=== PATIENT | female | born 1945 | race Caucasian/White ===

== ENCOUNTER 2018-10-16 02:53 | Inpatient (IN) | payer MEDICARE, SELFPAY ==
[2018-10-16] VITALS (25 sets, daily range): BP systolic 104–147; BP diastolic 53–83; PULSE 70–86; RESP 16–18; TEMP 35.6–37.2; O2SAT 96–100; BMI 29.8; BMI 28.6
--- NOTE | 2018-10-16 03:06 | RAD_ITS ---
STUDY: X-RAY CHEST REASON FOR EXAM: Female, 73 years old. Chest pain. TECHNIQUE: Single AP portable view of the chest. COMPARISON: Prior comparison studies are not available for review at this time. FINDINGS: Cardiac monitoring leads are present. The lungs are clear and expanded. There is no demonstrated pleural abnormality. There is borderline cardiomegaly. Normal mediastinum and davida. Normal visualized pulmonary arteries. There is atherosclerotic tortuosity of the aortic arch and descending thoracic aorta. There is demineralization of the osseous structures. Normal visualized ribs, clavicles, and shoulders. There is no demonstrated abnormality of the visualized soft tissue structures of the upper abdomen. RAD/Chest 1 View (Portable) IMPRESSION: Borderline cardiomegaly without obvious acute cardiopulmonary disease. Electronically Signed: Nathalia Cantrell MD at 4:00 EDT , Service support ,
--- NOTE | 2018-10-16 03:06 | EKG12_ITS ---
Test Reason : SOB Blood Pressure : / mmHG Vent. Rate : 075 BPM Atrial Rate : 075 BPM P-R Int : 128 ms QRS Dur : 076 ms QT Int : 422 ms P-R-T Axes : 002 030 028 degrees QTc Int : 471 ms Normal sinus rhythm Normal ECG Confirmed by ELENA DUEÑAS, MARIKA ([id number]), publication editor JERSON GARZA ([id number]) on 10/19/2018 9:08:28 AM Referred By: Edvin Bowser Confirmed By:MARIKA PARKER MD
[2018-10-16 03:34] LABS: Absolute Lymphocyte Count 1.67 X10^3/ul (0.83-4.51); Absolute Neutrophil Count 3.1 X10^3/uL (2.0-7.7); Basophil# 0.02 X10^3/uL; Basophil% 0.4 % (0-1); Eosinophil# 0.12 X10^3/uL; Eosinophils% 2.3 % (0-5); Hematocrit 15.9 % (37-47); Lymphocyte # 1.67 X10^3/ul (4.0); Lymphocyte % 32.1 % (19-41); Mean Corp Hgb Conc 30.8 g/gl (32-36); Mean Corpuscular Hgb 26.1 pg (27.0-32.0); Mean Corpuscular Volume 84.6 fL (81-99); Monocyte# 0.33 X10^3/uL; Monocyte% 6.3 % (0-10); Neutrophil # 3.05 X10^3/uL (2.7-7.7); Neutrophil % 58.7 % (47-70); Platelet Count 260 K/mm3 (150-450); RBC Distribution Width CV 14.9 % (11.6-14.6); RBC Distribution Width SD 43.9 fl (35.1-43.9); Red Blood Count 1.88 M/mm3 (4.2-5.4); White Blood Count 5.2 K/mm3 (4.4-11.0)
[2018-10-16 03:39] LABS: International Normalized Ratio 1.1; Prothrombin Time (Protime)PT. 14.4 SECONDS (11.7-14.9)
[2018-10-16 03:41] LABS: Differential Indicated SCAN CRITERIA MET; Hemoglobin 4.9 g/dl (12.0-15.0); POSITIVE COUNT YES; POSITIVE DIFFERENTIAL NO; POSITIVE MORPHOLOGY NO
[2018-10-16 03:42] LABS: D-Dimer Quantitative (DVT/PE) < 0.27 FEU/ug/m (0.27-0.49)
[2018-10-16 03:51] LABS: Anion Gap 8 (5-15); BUN 14 mg/dL (7-18); BUN/Creat Ratio 18.5 RATIO (10-20); Calcium,Total 7.8 mg/dL (8.5-10.1); Chloride 108 mmol/L (98-107); Creatinine, Serum 0.76 mg/dL (0.55-1.02); EST Glomerular Filtration Rate 80 mL/min (>60); Est Glom Filt Rate - Afr Amer 97 mL/min (>60); Estimated Creatinine Clearance 41.45 ml/min; Glucose 99 mg/dL (74-106); Potassium 3.7 mmol/L (3.5-5.1); Sodium Level 140 mmol/L (136-145)
[2018-10-16 03:53] LABS: Differential Comment SCANNED; Hypochromasia 2+; Microcytosis 1+; Platelet Estimate ADEQUATE (ADEQ); Schistocytes RARE
[2018-10-16 03:54] LABS: Rouleaux 1+
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
[2018-10-16 05:38] LABS: Bacteria 0 SEEN /hpf (None Seen); Mucous, Urine 0 SEEN /hpf (<or=2+); Red Blood Cells-Urine 0 SEEN /hpf (0-5); Squamous Epithelial Cells - UA 0 SEEN /hpf (5-10); White Blood Cells 0 SEEN /hpf (0-5)
[2018-10-16 05:45] LABS: Thyroid Stim Hormone (TSH) 4.15 uIU/mL (0.358-3.74)
[2018-10-16] MEDS: 0.9% NaCl Peripheral Flush Adult/Peds IV ×2 (05:50→20:08)
[2018-10-16] MEDS: oxyCODONE 5 MG Tablet 10 MG PO ×3 (06:19→19:58)
[2018-10-16] MEDS: Acetaminophen 325 MG Tablet 650 MG PO (06:19)
[2018-10-16 06:33] LABS: Color, Urine Yellow (Yellow); Glucose, Dipstick Normal (Normal); Ketone-Dipstick Negative (Negative); Leukocyte Esterase-Dipstick 25 /ul (Negative); Nitrite-Dipstick Negative (Negative); Occult Blood-Urine Negative /ul (Negative); Protein-Dipstick Negative (Negative); Urine Bilirubin Dipstick Negative (Negative); Urine Clarity Clear (Clear); Urine Urobilinogen Normal (Normal)
[2018-10-16 07:45] LABS: AST(SGOT) 11 U/L (15-37); Alanine Aminotransfer ALT/SGPT 10 U/L (13-56); Albumin, Serum 3.1 g/dL (3.2-5.0); Alkaline Phosphatase 41 U/L (45-117); Bilirubin, Direct 0.07 mg/dL (0.00-0.30); Ferritin 5 ng/mL (8-252); Iron 12 ug/dL (50-170); Iron Binding Capacity,Total 342 ug/dL (250-450); PERCENT IRON SATURATION 3.5 % (15.0-55.0); Protein, Total 6.1 g/dL (6.4-8.2)
[2018-10-16 08:01] LABS: Free T3 3.6 pg/mL (2.18-3.98); T4 Free Direct 1.22 ng/dL (0.76-1.46)
--- NOTE | 2018-10-16 08:39 | CT_ITS ---
STUDY: CT ABDOMEN AND PELVIS WITH CONTRAST REASON FOR EXAM: Female, 73 years old. Severe anemia. Abdominal pain. RADIATION DOSAGE (If Supplied By Facility): CTDIvol = ( 17.69 ) mGy, DLP = ( 777.27 ) mGycm TECHNIQUE: Transaxial images were obtained from the dome of the diaphragm to the symphysis pubis with oral contrast. 100mL IV/Oral Isovue 300 was administered. Sagittal and coronal images were reconstructed. Individualized dose optimization techniques were used for this CT. COMPARISON: None. FINDINGS: The visualized lung bases are unremarkable. The visualized portions of the heart are within normal limits. Normal liver. There is non-visualization of the gallbladder, which may be secondary to either contraction or a prior cholecystectomy. Normal spleen. There is diffuse atrophy of the pancreas. Normal bilateral adrenal glands. Normal right kidney. Normal left kidney. Normal visualized stomach. Normal small intestine. There are multiple colonic diverticula consistent with diverticulosis. Postsurgical changes of the sigmoid colon. Significant fecal retention throughout the remainder of the colon. Nonvisualized appendix. Normal abdominal aorta. Normal inferior vena cava. Normal retroperitoneum. Normal urinary bladder. Status post hysterectomy Normal abdominal wall. Severe compression deformity of L1, chronic in nature CT/Abdomen/Pelvis WITH Contrast IMPRESSION: No acute findings. Significant fecal retention throughout the abdomen and pelvis. Postsurgical changes of the sigmoid colon. Nonvisualized gallbladder. Remainder is within normal limits. Electronically Signed: Toro Hannon DO at 15:59 EDT Tel , Service support ,
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
[2018-10-16] MEDS: Magnesium Citrate 300 ML PO (10:32)
[2018-10-16] MEDS: 0.9% Normal Saline 1,000 ML 100 ML IV (10:32)
[2018-10-16] MEDS: Pramipexole Di-HCl 0.5 MG Tablet PO ×2 (10:32→22:40)
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
[2018-10-16 11:59] LABS: Hematocrit 21.3 % (37-47)
[2018-10-16] MEDS: diazePAM 2 MG Tablet PO ×2 (14:42→22:40)
[2018-10-16] MEDS: Methadone 10 MG Tablet PO ×3 (14:42→22:42)
[2018-10-16] MEDS: hydrOXYzine 10 MG Tablet 5 MG PO (20:08)
[2018-10-16] MEDS: Fleet Enema 1 ML RECTAL (21:30)
[2018-10-16] MEDS: Enoxaparin 80 MG/0.8 ML Syringe 70 MG SC (22:40)
[2018-10-16] MEDS: Zolpidem Tartrate 5 MG Tablet PO (22:40)
[2018-10-17] VITALS (10 sets, daily range): BP systolic 113–133; BP diastolic 66–78; PULSE 76–89; RESP 16–18; TEMP 36.3–36.9; O2SAT 97–100
[2018-10-17] MEDS: 0.9% Normal Saline 1,000 ML 100 ML IV ×3 (01:06→20:20)
[2018-10-17] MEDS: oxyCODONE 5 MG Tablet 10 MG PO ×2 (05:05→20:19)
[2018-10-17] MEDS: Pramipexole Di-HCl 0.5 MG Tablet PO ×3 (05:05→21:15)
[2018-10-17 05:48] LABS: Absolute Lymphocyte Count 2.01 X10^3/ul (0.83-4.51); Absolute Neutrophil Count 1.8 X10^3/uL (2.0-7.7); Basophil# 0.03 X10^3/uL; Basophil% 0.7 % (0-1); Eosinophil# 0.16 X10^3/uL; Eosinophils% 3.6 % (0-5); Hematocrit 25.8 % (37-47); Hemoglobin 8.4 g/dl (12.0-15.0); Lymphocyte # 2.01 X10^3/ul (4.0); Lymphocyte % 45.4 % (19-41); Mean Corp Hgb Conc 32.6 g/gl (32-36); Mean Corpuscular Hgb 27.7 pg (27.0-32.0); Mean Corpuscular Volume 85.1 fL (81-99); Monocyte# 0.42 X10^3/uL; Monocyte% 9.5 % (0-10); Neutrophil # 1.81 X10^3/uL (2.7-7.7); Neutrophil % 40.8 % (47-70); Platelet Count 223 K/mm3 (150-450); RBC Distribution Width CV 14.9 % (11.6-14.6); RBC Distribution Width SD 45.1 fl (35.1-43.9); Red Blood Count 3.03 M/mm3 (4.2-5.4); White Blood Count 4.4 K/mm3 (4.4-11.0)
[2018-10-17 06:10] LABS: POSITIVE COUNT NO; POSITIVE DIFFERENTIAL NO; POSITIVE MORPHOLOGY NO
[2018-10-17 06:11] LABS: Anion Gap 5 (5-15); BUN 8 mg/dL (7-18); BUN/Creat Ratio 13.4 RATIO (10-20); Calcium,Total 7.7 mg/dL (8.5-10.1); Chloride 110 mmol/L (98-107); EST Glomerular Filtration Rate 104 mL/min (>60); Est Glom Filt Rate - Afr Amer 126 mL/min (>60); Estimated Creatinine Clearance 41.45 ml/min; Glucose 74 mg/dL (74-106); Potassium 3.8 mmol/L (3.5-5.1); Sodium Level 142 mmol/L (136-145)
--- NOTE | 2018-10-17 07:35 | PCM.PN.SRG ---
Patient Problems: Active and Suspected Problems Severe symtomatic anemia (Acute) Subjective: Patient is feeling much better after transfusion. She had one rockhard bowel movement after Fleet enema and mag citrate. She has no abdominal pain this morning. - Physical Exam General: Alert, Oriented x3, Cooperative HEENT: Atraumatic Lungs: Normal air movement Cardiovascular: Regular rate, Regular Rhythm Abdomen: Soft, Non Tender, Non-Distended Vital Signs Temp Pulse Resp BP Pulse Ox 98.5 F 76 16 113/66 97 10/17/18 04:45 10/17/18 06:51 10/17/18 04:45 10/17/18 04:45 10/17/18 04:45 Oxygen Flow Rate (L/min) 2 Oxygen Delivery Method Room Air Weight: 161 lb 9.581 oz Body Mass Index (BMI) 28.6 Intake and Output for Last 24 Hours 10/15/18 10/16/18 10/17/18 23:59 23:59 23:59 Intake Total 3501 / 3501 879 / 879 Balance 3501 / 3501 879 / 879 Microbiology Past 72 Hours 10/16/18 19:35 Stool Occult Blood (PHUC) - Final Stool Occult Blood Positive Laboratory Tests Past 24 Hrs 10/16/18 10/16/18 10/16/18 03:20 03:20 03:55 WBC RBC Hgb Hct MCV MCH MCHC RDW RDW Differential Plt Count MPV Immature Gran % (Auto) Neut % (Auto) Lymph % (Auto) [place] % (Auto) Eos % (Auto) Baso % (Auto) Absolute Neuts (auto) Absolute Lymphs (auto) Total Counted Sodium Potassium Chloride Carbon Dioxide Anion Gap BUN Creatinine Estim Creat Clear Calc Est GFR (MDRD) Af Amer Est GFR (MDRD) Non-Af BUN/Creatinine Ratio Glucose Calcium Iron 12 L TIBC 342 Iron Saturation 3.5 L Ferritin 5 L Total Bilirubin 0.20 Direct Bilirubin 0.07 AST 11 L ALT 10 L Alkaline Phosphatase 41 L Total Protein 6.1 L Albumin 3.1 L Globulin 3.0 Free T4 1.22 Free T3 pg/dL 3.6 Blood Type A NEGATIVE Antibody Screen NEGATIVE Crossmatch See Detail 10/16/18 10/17/18 10/17/18 11:45 05:15 05:15 WBC 4.4 RBC 3.03 L Hgb 7.0 L 8.4 L Hct 21.3 L 25.8 L MCV 85.1 MCH 27.7 MCHC 32.6 RDW 14.9 H RDW Differential 45.1 H Plt Count 223 MPV 10.0 Immature Gran % (Auto) 0.000 Neut % (Auto) 40.8 L Lymph % (Auto) 45.4 H [place] % (Auto) 9.5 Eos % (Auto) 3.6 Baso % (Auto) 0.7 Absolute Neuts (auto) 1.8 L Absolute Lymphs (auto) 2.01 Total Counted Not Reportable Sodium 142 Potassium 3.8 Chloride 110 H Carbon Dioxide 27.0 Anion Gap 5 BUN 8 Creatinine 0.60 Estim Creat Clear Calc 41.45 Est GFR (MDRD) Af Amer 126 Est GFR (MDRD) Non-Af 104 BUN/Creatinine Ratio 13.4 Glucose 74 Calcium 7.7 L Iron TIBC Iron Saturation Ferritin Total Bilirubin Direct Bilirubin AST ALT Alkaline Phosphatase Total Protein Albumin Globulin Free T4 Free T3 pg/dL Blood Type Antibody Screen Crossmatch Medical Necessity - Tobacco Use Smoking Status: Current every day smoker Tobacco Use: Cigarettes Assessment/Plan All Active Problems Severe symtomatic anemia (Acute) 73-year-old female with severe anemia 1. Plan is for bowel prep today and clear liquids. N.p.o. after midnight. As long as her stools are running clear in the morning she will have EGD and colonoscopy tomorrow. If stools are still not clear she will continue preparation tomorrow and the scopes will be pushed back one day. Continue to monitor H&H. Blake Khan MD Pager: [facility] [address] [place] [address], [address] [place] [address] Office:
[2018-10-17] MEDS: Polyethylene Glycol 3350 17 GM PACKET 238 GM PO (08:19)
[2018-10-17] MEDS: Bisacodyl 5 MG Tablet 10 MG PO (08:19)
[2018-10-17] MEDS: Morphine 2 MG/ML Syringe IV ×4 (08:22→21:14)
[2018-10-17] MEDS: Atenolol 25 MG Tablet PO (10:34)
[2018-10-17] MEDS: Enoxaparin 80 MG/0.8 ML Syringe 70 MG SC ×2 (10:34→21:15)
[2018-10-17] MEDS: Methadone 10 MG Tablet PO ×4 (10:34→21:14)
[2018-10-17] MEDS: amLODIPine 5 MG Tablet PO (10:35)
[2018-10-17] MEDS: Loratadine 10 MG Tablet PO (10:35)
[2018-10-17] MEDS: Citalopram 40 MG TABLET PO (10:35)
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
[2018-10-17] MEDS: diazePAM 2 MG Tablet PO (10:52)
[2018-10-17] MEDS: 0.9% NaCl Peripheral Flush Adult/Peds IV ×2 (11:29→11:32)
[2018-10-17] MEDS: Ondansetron 4 MG/2 ML Vial IV (11:32)
[2018-10-17] MEDS: Polyethylene Glycol 3350 17 GM PACKET 119 GM PO (17:17)
[2018-10-17] MEDS: Zolpidem Tartrate 5 MG Tablet PO (21:24)
[2018-10-18] VITALS (11 sets, daily range): BP systolic 124–144; BP diastolic 70–78; PULSE 86–109; RESP 16–19; TEMP 36.3–37.4; O2SAT 92–98; BMI 28.6
[2018-10-18] MEDS: Morphine 2 MG/ML Syringe IV ×3 (00:28→08:10)
[2018-10-18] MEDS: Magnesium Citrate 300 ML PO (04:51)
[2018-10-18] MEDS: oxyCODONE 5 MG Tablet 10 MG PO (04:56)
[2018-10-18] MEDS: Pramipexole Di-HCl 0.5 MG Tablet PO ×2 (05:33→13:07)
[2018-10-18] MEDS: 0.9% Normal Saline 1,000 ML 100 ML IV (06:10)
[2018-10-18] MEDS: proMETHazine 25 MG/ML Syringe 12.5 MG IV (06:10)
--- NOTE | 2018-10-18 06:16 | NURSING ---
pt called out and stated she has had several episodes of emesis; Phenergan given.
[2018-10-18 06:46] LABS: Absolute Lymphocyte Count 1.75 X10^3/ul (0.83-4.51); Absolute Neutrophil Count 1.9 X10^3/uL (2.0-7.7); Basophil# 0.04 X10^3/uL; Eosinophil# 0.16 X10^3/uL; Eosinophils% 3.8 % (0-5); Hemoglobin 8.6 g/dl (12.0-15.0); Lymphocyte # 1.75 X10^3/ul (4.0); Lymphocyte % 41.7 % (19-41); Mean Corp Hgb Conc 31.9 g/gl (32-36); Mean Corpuscular Hgb 27.6 pg (27.0-32.0); Mean Corpuscular Volume 86.5 fL (81-99); Monocyte# 0.32 X10^3/uL; Monocyte% 7.6 % (0-10); Neutrophil # 1.93 X10^3/uL (2.7-7.7); Neutrophil % 45.9 % (47-70); Platelet Count 233 K/mm3 (150-450); RBC Distribution Width CV 15.7 % (11.6-14.6); RBC Distribution Width SD 49.5 fl (35.1-43.9); Red Blood Count 3.12 M/mm3 (4.2-5.4); White Blood Count 4.2 K/mm3 (4.4-11.0)
[2018-10-18 06:50] LABS: POSITIVE COUNT NO; POSITIVE DIFFERENTIAL NO; POSITIVE MORPHOLOGY NO
[2018-10-18 07:08] LABS: Anion Gap 6 (5-15); BUN 3 mg/dL (7-18); BUN/Creat Ratio 5.4 RATIO (10-20); Calcium,Total 7.8 mg/dL (8.5-10.1); Chloride 109 mmol/L (98-107); Creatinine, Serum 0.56 mg/dL (0.55-1.02); EST Glomerular Filtration Rate 113 mL/min (>60); Est Glom Filt Rate - Afr Amer 137 mL/min (>60); Estimated Creatinine Clearance 41.45 ml/min; Glucose 81 mg/dL (74-106); Potassium 3.4 mmol/L (3.5-5.1); Sodium Level 143 mmol/L (136-145)
--- NOTE | 2018-10-18 09:34 | NURSING ---
REPORT CALLED TO GUDELIA.
--- NOTE | 2018-10-18 10:24 | CASEMGMT ---
RN CM Note: attempted to see pt for RN CM assessment. Pt is at testing. Sylvie MCGILLN RN ACM
--- NOTE | 2018-10-18 11:00 | IMM_PTH ---
PATIENT: CANDICE CASTELLON LOC: PCU U#:[id number] AGE/SX: 73/F ROOM: [facility] RE10/16/[address]: Dr. Della Patton MD : 1945 BED: 1 DIS: 10/18/2018 SPEC #: [id number] RECD: 10/18/18 13:36 STATUS: THANIA REAntonia #: [id number] ANGELA: 10/18/18 11:[address]: Blake Khan DEPT: IMMUNOHISTOCHEMISTRY RECD BY: Marilyn Powers ENTERED: 10/18/18 13:37 SP TYPE: IMMUNO OTHR DR: MD Dr. Edvin Solano MD No Primary Care Phys Tissues: Pylorus Procedures: H Pylori (initial) PHYSICIAN & INSTITUTION [place] [id number] SPECIMEN INFORMATION: Tissue Source: Prepyloric ulcer biopsy Clinical Info: Iron deficiency anemia Specimen Number: [id number] CPT code: 10508 METHODOLOGY: Deparaffinized sections of prefer/formalin-fixed tissue or PAP/DQ stained slides are incubated with monoclonal/polyclonal antibodies/oligonucleotide probes. Localization is made via biotin free immunoperoxidase method. Appropriate controls are performed and reacted as expected. Results on target cell population are indicated in the following table: RESULTS: ANTIBODY / CLONE RESULT H Pylori (polyclonal) negative These tests were developed and their performance characteristics determined by [facility]. They may not have been cleared or approved by the U.S. Food and Drug Administration. The FDA has determined that such clearance or approval is not necessary. INTERPRETATION: Prepyloric ulcer, biopsy: Negative for Helicobacter pylori organisms. CE:guerda 10/19/18
--- NOTE | 2018-10-18 11:00 | EGD_PTH ---
PATIENT: CANDICE CASTELLON LOC: PCU U#:[id number] AGE/SX: 73/F ROOM: [facility] RE10/16/[address]: Dr. Della Patton MD : 1945 BED: 1 DIS: 10/18/2018 SPEC #: [id number] RECD: 10/18/18 11:51 STATUS: THANIA DEWEY #: [id number] ANGELA: 10/18/18 11:[address]: Blake Khan DEPT: SURGICAL PATHOLOGY RECD BY: Gwyn Batres ENTERED: 10/18/18 12:26 SP TYPE: EGD BIOPSY OTHR DR: MD Dr. Edvin Solano MD No Primary Care Phys Tissues: Pylorus Procedures: Surgery Specimen Level IV HEADER OPERATION: Colonoscopy, EGD ([facility]) PRE-OP DIAGNOSIS: Iron deficiency anemia TISSUE SUBMITTED: Biopsy prepyloric ulcer, H. pylori and path MICROSCOPIC DIAGNOSIS Prepyloric ulcer: Mild chronic gastritis with reactive glandular changes; clinically ulcer. CE:guerda 10/19/18 COMMENT The results of immunohistochemistry for Helicobacter pylori will be reported separately ([id number]). MICROSCOPIC DESCRIPTION Slides are reviewed. GROSS DESCRIPTION Received in fixative is one container labeled with the patient's name and designated prepyloric ulcer. The specimen consists of multiple irregular fragments of light joshi soft tissue that in aggregate measure 0.5 x 0.5 x 0.1 cm. The specimen is totally submitted in one cassette. / AM:guerda 10/18/18 TC:3 CPT: 43492
--- NOTE | 2018-10-18 11:46 | OP.ENDO_ITS ---
10/18/2018 No Primary Care Physician Re : Upper GI endoscopy procedure for Nehal Helms Dear Care Physician This procedure was performed on Thursday, October 18, 2018. My impressions and recommendations are as follows: Impressions : - Non-bleeding gastric ulcer with no stigmata of bleeding. Biopsied. Recommendations : - Resume previous diet. - Continue present medications. - Await pathology results. My findings are described in the full procedure note, which is enclosed. If I can be of further assistance, please feel free to contact me at Doctor phone number(s): , Work: . Sincerely, Blake Khan MD 10/18/2018 11:45:53 AM This report has been signed electronically.
--- NOTE | 2018-10-18 11:47 | OP.ENDO_ITS ---
10/18/2018 No Primary Care Physician Re : Colonoscopy procedure for Nehal Helms Dear Care Physician This procedure was performed on Thursday, October 18, 2018. My impressions and recommendations are as follows: Impressions : - The entire examined colon is normal on direct and retroflexion views. - No specimens collected. Recommendations : - Discharge patient to home. - Resume previous diet. - Continue present medications. - Await pathology results. - Repeat colonoscopy in 10 years for surveillance. My findings are described in the full procedure note, which is enclosed. If I can be of further assistance, please feel free to contact me at Doctor phone number(s): , Work: . Sincerely, Blake Khan MD 10/18/2018 11:47:24 AM This report has been signed electronically.
--- NOTE | 2018-10-18 11:57 | DCINST_ITS ---
- Discharge Diagnoses Current Active Problems: Current Active and Chronic Problems Hypertension (Chronic) Pulmonary embolism (Chronic) Hiatus hernia with GERD (Chronic) Chronic pain syndrome (Chronic) Chronic costochondritis (Chronic) Severe symtomatic anemia (Acute) You will use the following diet at home:: No restrictions Your food should be the consistency of: Regular Your liquids should be the consistency of: Regular/Thin Discharge Activity: Return to Normal Activity Weight Bearing Status: Weight bearing as tolerated Call your doctor if you observe: Fever of 101 or Higher, Shortness of breath, Swelling in the ankles, - - abdominal pain Instructions: Iron Supplements, Peptic Ulcer Allergies/Adverse Reactions: Allergies celecoxib [From Celebrex] Allergy (Verified 10/16/18 03:17) Anaphylaxis paroxetine [From Paxil] Allergy (Verified 10/16/18 03:17) Other heart arrhythmia pregabalin [From Lyrica] Allergy (Verified 10/16/18 03:17) Nausea Rvlowla-Thf-Ips Reductase Inhibitor Allergy (Verified 10/16/18 03:17) Chest tightness Sulfa (Sulfonamide Antibiotics) Allergy (Verified 10/16/18 03:17) Anaphylaxis zolmitriptan [From Zomig] Allergy (Verified 10/16/18 03:17) Anaphylaxis zomax Allergy (Severe, Uncoded 10/16/18 15:45) Anaphylaxis Medications to take at Discharge Amlodipine [Norvasc] 5 mg PO DAILY 10/16/18 Atenolol [Tenormin (beta jese)] 25 mg PO DAILY 10/16/18 Cetirizine HCl [Zyrtec] 20 mg PO DAILY 10/16/18 Citalopram [Celexa] 40 mg PO DAILY 10/16/18 Cyclobenzaprine [Flexeril] 10 mg PO BID PRN 10/16/18 Diazepam [Valium] 2 mg PO TID PRN PRN 10/16/18 Docusate Sodium [Colace] 300 mg PO DAILY 10/16/18 Methadone HCl 10 mg PO 4X/DAY 10/16/18 Oxycodone HCl/Acetaminophen [Percocet 10-325 mg Tablet] 1 tablet PO Q4H PRN PRN 10/16/18 Pantoprazole Sodium [Protonix] 40 mg PO BID 10/16/18 Prochlorperazine Maleate [Compazine] 5 mg PO Q4H PRN PRN 10/16/18 Rivaroxaban [Xarelto] 20 mg PO DAILY 10/16/18 Ropinirole HCl [Requip] 1 mg PO TID 10/16/18 hydrOXYzine tablet [Atarax tablet] 5 mg PO 4X/DAY PRN PRN 10/16/18 Ferrous Sulfate 325 mg PO BID #60 tablet 10/18/18 Pantoprazole Sodium [Protonix] 40 mg PO BID #60 tablet 10/18/18 The following prescriptions were given: Ferrous Sulfate 325 mg PO BID #60 tablet Pantoprazole Sodium [Protonix] 40 mg PO BID #60 tablet Primary Care Physician: Care Physician,No Primary [Primary Care Provider] - Test Results: Test results from this visit will be discussed in further detail at your follow- up appointment, if applicable. Please Follow Up With: Chandler Choudhary MD - [phone] When: call her office for appointment to establish PCP relationship Proposed Discharge Date: 10/18/18
--- NOTE | 2018-10-18 11:58 | DS.PCM_ITS ---
Discharge Date and Diagnosis Date of Admission: 10/16/18 Date of Discharge: 10/18/18 - Primary Discharge Diagnosis Active and Suspected Problems Severe symptomatic anemia (Acute) - Secondary Discharge Diagnosis Chronic Problems Hypertension (Chronic) Pulmonary embolism (Chronic) Hiatus hernia with GERD (Chronic) Chronic pain syndrome (Chronic) Chronic costochondritis (Chronic) Hospital Course and Treatment Imaging Results: Diagnostic Data Chest X-Ray 10/16/18 03:06 IMPRESSION: Borderline cardiomegaly without obvious acute cardiopulmonary disease. Electronically Signed: Nathalia Cantrell MD at 4:00 EDT , Service support , Abdomen/Pelvis CT 10/16/18 08:39 IMPRESSION: No acute findings. Significant fecal retention throughout the abdomen and pelvis. Postsurgical changes of the sigmoid colon. Nonvisualized gallbladder. Remainder is within normal limits. Electronically Signed: Toro Hannon DO at 15:59 EDT Tel , Service support , general surgery- Dr Khan Operations: None Procedures: None Summary of Care Provided: Patient is a 73-year-old female with a past medical history as listed was admitted through the ED on 10/16/2018 with a complaint of severe dyspnea on exertion of 1 week. Hemoglobin on admission was 4.9. There is no previous labs to compare to. She denied any melena stools or hematochezia coffee-ground trina sis. Due to patient's long distance from [place], it was thought that she may have a PE but d-dimer was negative. She was admitted and managed for acute symptomatic anemia. Xarelto which she had been taking for 2 episodes of PE in the past was held. She was started on Lovenox therapeutic dose after discussion with general surgery in order to preclude DVT and PE formation she was transfused 3 units of packed red blood cells. General surgery was consulted. Hemoglobin gradually trended up to 8.6. She had EGD and colonoscopy on 10/18/2018. Colonoscopy was normal and EGD showed nonbleeding gastric ulcer with no stigmata of bleeding which was also biopsied. Patient remained stable and was discharged home on p.o. pantoprazole 40 mg twice daily. She is follow-up with her primary care doctor. She was given a prescription for p.o. pantoprazole 40 mg twice daily and also ferrous sulfate 325 mg twice daily. SHe was referred to Dr Renetta Choudhary to establish PCP relationship. Patient seen and examined prior to discharge. She was had no complaints and felt well. Review of systems was otherwise negative. Labs and vitals reviewed. Home medications reviewed and reconciled. o/e: Vital Signs Height 5 ft 3 in Weight: 161 lb 9.581 oz Weight in Pounds 161.6 lbs Pulse Ox 95 Temperature 99.3 F Pulse Rate 86 Respiratory Rate 16 Blood Pressure 136/77 Blood Pressure Position Semi-Fowlers General: Alert, Oriented x3, Cooperative, No apparent distress HEENT: Atraumatic, PERRLA, EOMI, Normocephalic Oral: Moist Mucosa Neck: Supple, No JVD, Negative Carotid Bruits Lungs: Clear to auscultation, Normal air movement, No rhonchi, No wheeze, No rales Cardiovascular: Regular rate, Regular Rhythm, Normal S1, Normal S2, No murmurs Abdomen: Bowel Sounds Present, Soft, Non Tender, Non-Distended, No Hepato- splenomegaly Extremities: No clubbing, No cyanosis, No edema, Capillary Refill Less than 3 Seconds Skin: No rashes, No breakdown Musculoskeletal: No Tenderness to Palpation of Joints or Extremities Lymphatic: No Cervical, Supraclavicular, or Inguinal Adenopathy Neurological: Cranial nerves II-XII grossly intact Psych/Mental Status: Normal Affect, Appropriate, Alert and oriented to time, place, person, mood and affect Plan as above. - Physical Exam Vital Signs Temp Pulse Resp BP Pulse Ox 97.3 F L 100 16 134/78 H 95 10/18/18 11:45 10/18/18 11:50 10/18/18 11:50 10/18/18 11:50 10/18/18 11:50 Oxygen Flow Rate (L/min) 2 Oxygen Delivery Method Room Air Weight: 161 lb 9.581 oz Body Mass Index (BMI) 28.6 Intake and Output for Last 24 Hours 10/16/18 10/17/18 10/18/18 23:59 23:59 23:59 Intake Total 3501 / 3501 4435 / 4435 2883 / 2883 Balance 3501 / 3501 4435 / 4435 2883 / 2883 Microbiology Past 72 Hours 10/16/18 19:35 Stool Occult Blood (PHUC) - Final Stool Occult Blood Positive Laboratory Tests Past 24 Hrs 10/18/18 10/18/18 05:37 05:37 WBC 4.2 L RBC 3.12 L Hgb 8.6 L Hct 27.0 L MCV 86.5 MCH 27.6 MCHC 31.9 L RDW 15.7 H RDW Differential 49.5 H Plt Count 233 MPV 10.0 Immature Gran % (Auto) 0.000 Neut % (Auto) 45.9 L Lymph % (Auto) 41.7 H [place] % (Auto) 7.6 Eos % (Auto) 3.8 Baso % (Auto) 1.0 Absolute Neuts (auto) 1.9 L Absolute Lymphs (auto) 1.75 Total Counted Not Reportable Sodium 143 Potassium 3.4 L Chloride 109 H Carbon Dioxide 28.0 Anion Gap 6 BUN 3 L Creatinine 0.56 Estim Creat Clear Calc 41.45 Est GFR (MDRD) Af Amer 137 Est GFR (MDRD) Non-Af 113 BUN/Creatinine Ratio 5.4 L Glucose 81 Calcium 7.8 L Discharge Diet: Low fat/ Low Cholesterol Discharge Activity: Return to Normal Activity Weight Bearing Status: Weight bearing as tolerated Call your doctor if you observe: Fever of 101 or Higher, Shortness of breath, Swelling in the ankles, - - abdominal pain Home Medications: Medications to take at Discharge Amlodipine [Norvasc] 5 mg PO DAILY 10/16/18 Atenolol [Tenormin (beta jese)] 25 mg PO DAILY 10/16/18 Cetirizine HCl [Zyrtec] 20 mg PO DAILY 10/16/18 Citalopram [Celexa] 40 mg PO DAILY 10/16/18 Diazepam [Valium] 2 mg PO TID PRN PRN 10/16/18 Docusate Sodium [Colace] 300 mg PO DAILY 10/16/18 Methadone HCl 10 mg PO 4X/DAY 10/16/18 Oxycodone HCl/Acetaminophen [Percocet 10-325 mg Tablet] 1 tablet PO Q4H PRN PRN 10/16/18 Pantoprazole Sodium [Protonix] 40 mg PO BID 10/16/18 Prochlorperazine Maleate [Compazine] 5 mg PO Q4H PRN PRN 10/16/18 Rivaroxaban [Xarelto] 20 mg PO DAILY 10/16/18 Ropinirole HCl [Requip] 1 mg PO TID 10/16/18 cycloBENZAPRine HCl [Flexeril] 10 mg PO BID PRN 10/16/18 hydrOXYzine tablet [Atarax tablet] 5 mg PO 4X/DAY PRN PRN 10/16/18 Ferrous Sulfate 325 mg PO BID #60 tablet 10/18/18 Pantoprazole Sodium [Protonix] 40 mg PO BID #60 tablet 10/18/18 Following Prescrptions Were Given to Patient: Ferrous Sulfate 325 mg PO BID #60 tablet Pantoprazole Sodium [Protonix] 40 mg PO BID #60 tablet Primary Care Physician: Care Physician,No Primary [Primary Care Provider] - Please Follow Up With: Chandler Choudhary MD - [phone] When: call her office for appointment to establish PCP relationship Patient Instructions: Peptic Ulcer, Iron Supplements Disposition: Home Minutes spent on discharge:: 35 Patient Condition:: Stable Medical Necessity - Tobacco Use Smoking Status: Current every day smoker Tobacco Use: Cigarettes Meaningful Use Info Meaningful Use Diagnoses (Choose all that apply): None applicable Code Visit Inpatient E&M: 34996 Disch Hosp
[2018-10-18] MEDS: Methadone 10 MG Tablet PO (13:07)
[2018-10-18] MEDS: Loratadine 10 MG Tablet PO (13:07)
[2018-10-18] MEDS: Atenolol 25 MG Tablet PO (13:07)
[2018-10-18] MEDS: amLODIPine 5 MG Tablet PO (13:08)
[2018-10-18] MEDS: Citalopram 40 MG TABLET PO (13:08)
[2018-10-18 14:39] LABS: Pathologist Review Reviewed
== END 2018-10-18 14:07 | disposition home or self-care (01) | DRG 812 ==
LOC: ED 04:17 → PCU 04:28
PROVIDERS: Surgery; Admitting Provider Internal Medicine; Emergency Provider Emergency Medicine; Referring Provider Internal Medicine; Visit Provider Student in an Organized Health Care Education/Training Program
PROC: 0DJD8ZZ Inspection of Lower Intestinal Tract, Via Natural or Artificial Opening Endoscopic (ICD-10-PCS; CPT 45378; principal; 2018-10-18 10:55)
DX: D50.9 Iron deficiency anemia, unspecified (principal); I10 Essential (primary) hypertension; G89.21 Chronic pain due to trauma; Z86.711 Personal history of pulmonary embolism; Z79.02 Long term (current) use of antithrombotics/antiplatelets; K21.9 Gastro-esophageal reflux disease without esophagitis; Z79.899 Other long term (current) drug therapy; F17.210 Nicotine dependence, cigarettes, uncomplicated; K44.9 Diaphragmatic hernia without obstruction or gangrene; M94.0 Chondrocostal junction syndrome [Tietze]; G62.9 Polyneuropathy, unspecified; Z93.3 Colostomy status; K29.50 Unspecified chronic gastritis without bleeding; K25.9 Gastric ulcer, unspecified as acute or chronic, without hemorrhage or perforation; F41.9 Anxiety disorder, unspecified; F32.9 Major depressive disorder, single episode, unspecified
CPT/HCPCS: 36415; 71045; 74177; 80048; 80076; 81001; 82274; 82728; 83540; 83550; 84439; 84443; 84481; 84484; 85014; 85018; 85025; 85379; 85610; 86850; 86900; 86920; 86922; 88305; 88342; 93005; 99285; 99406; J7030; J7040; P9016; Q9967; A4216; J2405

== ENCOUNTER 2018-12-09 20:19 | Emergency (ER) | payer MEDICARE, SELFPAY ==
[2018-10-18 10:11] VITALS: BMI 28.6
[2018-12-09 20:20] VITALS: BP 144/68; PULSE 91; RESP 21; TEMP 36.3; O2SAT 97; BMI 27.1
--- NOTE | 2018-12-09 21:05 | EKG12_ITS ---
Test Reason : CP Blood Pressure : / mmHG Vent. Rate : 085 BPM Atrial Rate : 085 BPM P-R Int : 140 ms QRS Dur : 070 ms QT Int : 392 ms P-R-T Axes : 039 043 050 degrees QTc Int : 466 ms Normal sinus rhythm Normal ECG Confirmed by ESTEFANY DUEÑAS, LUISANA ([id number]), map editor JONH TORRES ([id number]) on 12/12/2018 1:03:56 PM Referred By: DWAYNE Confirmed By:LUISANA ALLISON MD
--- NOTE | 2018-12-09 21:05 | CT_ITS ---
STUDY: CT BRAIN WITHOUT CONTRAST REASON FOR EXAM: Female, 73 years old. Headache, dizziness. RADIATION DOSAGE (If Supplied By Facility): CTDIvol = ( 44.99 ) mGy, DLP = ( 779.24 ) mGycm TECHNIQUE: Transaxial CT imaging of the brain was performed without administration of intravenous contrast material. Individualized dose optimization techniques were used for this CT. COMPARISON: No relevant priors. FINDINGS: Normal soft tissue structures. Normal calvarium. Normal size ventricles and extra-axial spaces for the patient's age. Normal white matter tracts of the cerebral hemispheres. Normal basal ganglia and thalami. Normal brainstem. Normal cerebellum. There is no intracranial hemorrhage. There are no findings of an acute ischemic infarction. Normal visualized paranasal sinuses. CT/Brain/Head without Contrast IMPRESSION: Normal unenhanced CT scan of the brain. Electronically Signed: Carly Virk MD at 22:10 EDT Tel , Service support ,
--- NOTE | 2018-12-09 21:10 | RAD_ITS ---
STUDY: X-RAY CHEST REASON FOR EXAM: Female, 73 years old. Chest pain, headache. TECHNIQUE: Portable chest. COMPARISON: 10/16/2018. FINDINGS: The lungs are clear and expanded. There is no demonstrated pleural abnormality. Normal size heart. Normal mediastinum and davida. Normal visualized pulmonary arteries. Normal visualized aortic arch and descending thoracic aorta. Normal visualized thoracic spine. Normal visualized ribs, clavicles, and shoulders. There is no demonstrated abnormality of the visualized soft tissue structures of the upper abdomen. RAD/Chest 1 View (Portable) IMPRESSION: Normal x-ray examination of the chest. Electronically Signed: Carly Virk MD at 21:30 EDT Tel , Service support ,
[2018-12-09 21:45] LABS: Basophil# 0.04 X10^3/uL; Basophil% 0.8 % (0-1); Eosinophil# 0.16 X10^3/uL; Eosinophils% 3.4 % (0-5); Hematocrit 28.5 % (37-47); Hemoglobin 9.1 g/dL (12.0-15.0); Lymphocyte % 46.3 % (19-41); Mean Corp Hgb Conc 31.9 g/dL (32-36); Mean Corpuscular Hgb 28.3 pg (27.0-32.0); Mean Corpuscular Volume 88.8 fL (81-99); Mean Platelet Vol. 9.7 fl (6.2-12.0); Monocyte# 0.33 X10^3/uL; Monocyte% 6.9 % (0-10); NRBC Flagged by Analyzer 0 % (0-5); Neutrophil % 42.2 % (47-70); Platelet Count 248 K/mm3 (150-450); RBC Distribution Width CV 14.1 % (11.6-14.6); RBC Distribution Width SD 45.1 fl (35.1-43.9); Red Blood Count 3.21 M/mm3 (4.2-5.4); White Blood Count 4.8 K/mm3 (4.4-11.0)
[2018-12-09 22:03] LABS: Anion Gap 6 (5-15); BUN 11 mg/dL (7-18); BUN/Creat Ratio 14.8 RATIO (10-20); Calcium,Total 8.3 mg/dL (8.5-10.1); Chloride 111 mmol/L (98-107); Creatinine, Serum 0.74 mg/dL (0.55-1.02); EST Glomerular Filtration Rate 81 mL/min (>60); Est Glom Filt Rate - Afr Amer 98 mL/min (>60); Estimated Creatinine Clearance 43.27 ml/min; Glucose 99 mg/dL (74-106); Potassium 3.7 mmol/L (3.5-5.1); Sodium Level 144 mmol/L (136-145)
[2018-12-09 22:20] VITALS: BP 143/98; PULSE 74; RESP 16; O2SAT 98
[2018-12-09] MEDS: Morphine 4 MG/ML Syringe IV (22:34)
--- NOTE | 2018-12-09 22:57 | ED.DCSUM_ITS ---
- ER Visit Summary Date of Service: 12/09/18 Chief Complaint: Headache and chest pain History of Present Illness: The patient is a 73 F with headache and chest pain for 4 hours. The patient feels foggy and tired. She tried Excedrin, but it is not helping. She also reports chronic back pain. She said her chest hurts all over consistent with her prior costochondritis. She has issues with chronic pain, but her insurance does not cover pain management currently. She is out of her pain medication. She has a history of PE but is compliant with Xarelto. Denies head injury. Denies any new neurologic symptoms. Denies vomiting. Patient reports similar symptoms in the past with anemia, and she had required transfusions in the past. She denies any bleeding. Physical Examination: Afebrile and vital signs unremarkable. Patient alert and oriented. No acute distress. Head and neck are atraumatic. Neck is nontender. HEENT exam unremarkable. Cranial nerves grossly intact. Heart regular rate and rhythm. Lungs clear bilaterally. Abdomen soft and nontender. Extremities nontender with no edema. Skin appears normal. Moves all extremities. No focal or lateralizing neurologic findings. Test Results: EKG showed sinus rhythm at a rate of 85. Hemoglobin stable at 9.1. BMP and troponin normal. Chest x-ray normal. CT brain normal. Emergency Department Course and Treatment: On reevaluation, patient is improved. No new or different symptoms. No evidence of bleed, trauma, or other acute pathology. I suspect her chest pain is her chronic pain. Her hemoglobin is stable. Patient requesting discharge. She was given a short course of pain medicine and will follow-up as an outpatient. Treatment Plan: As above Disposition: Discharge Impression: 1. Headache 2. Acute on chronic chest pain 3. Anemia This note was generated with [employer] dictation software. It may contain incorrect words, spelling, and punctuation that were not noted in review of the chart prior to signing ED Disposition - Plan for ED Patient: Referrals: Omar Mosqueda,Out of [Primary Care Provider] -
--- NOTE | 2018-12-09 23:02 | ED.DEP ---
ED Disposition - Plan for ED Patient: Instructions: CHEST PAIN, Uncertain Cause Prescriptions: Hydrocodone Bitart/Apap 5-325 [[place] 5MG-325MG] 1 tab PO Q6H PRN PRN 3 Days #10 tab PRN Reason: Pain Prescription Printed Referrals: [facility] Doctor,Out of [Primary Care Provider] -
[2018-12-09] MEDS: HYDROcodone Bitartrate/Apap 5/325 Tablet PO (23:12)
[2018-12-09 23:13] VITALS: BP 128/78; PULSE 77; RESP 16
== END 2018-12-09 23:16 | disposition home or self-care (01) ==
PROVIDERS: Emergency Provider Emergency Medicine
DX: R07.9 Chest pain, unspecified (principal); R51 Headache; G89.29 Other chronic pain; D64.9 Anemia, unspecified; K21.9 Gastro-esophageal reflux disease without esophagitis; I10 Essential (primary) hypertension; Z72.0 Tobacco use; Z86.711 Personal history of pulmonary embolism; Z79.02 Long term (current) use of antithrombotics/antiplatelets; Z79.891 Long term (current) use of opiate analgesic; Z79.899 Other long term (current) drug therapy
CPT/HCPCS: 70450; 71045; 80048; 84484; 85025; 93005; 96374; 99285; A4216

== ENCOUNTER 2019-01-04 15:51 | Observation (INO) | payer MEDICARE, SELFPAY ==
[2019-01-04] VITALS (13 sets, daily range): BP systolic 109–150; BP diastolic 57–79; PULSE 93–110; RESP 16–21; TEMP 36.6–37.1; O2SAT 97–100; BMI 27.1; BMI 27.6; BMI 27.7
--- NOTE | 2019-01-04 16:32 | EKG12_ITS ---
Test Reason : SOB Blood Pressure : / mmHG Vent. Rate : 103 BPM Atrial Rate : 103 BPM P-R Int : 134 ms QRS Dur : 070 ms QT Int : 368 ms P-R-T Axes : 038 033 034 degrees QTc Int : 482 ms Sinus tachycardia Otherwise normal ECG Confirmed by AUSTIN VASQUEZ ([id number]), avid editor EJRSON GARZA ([id number]) on 01/05/2019 2:19:48 PM Referred By: Louise Wei Confirmed By:AUSTIN VASQUEZ
--- NOTE | 2019-01-04 16:33 | ED.VISSUMM ---
- ER Visit Summary Date of Service: 01/04/19 Chief Complaint: Shortness of breath History of Present Illness: The patient is a 73 F presenting with shortness of breath. Patient states this has been ongoing for months and has worsened over the past couple of days. She has a history of COPD and is a smoker. She has not had recent steroids. She has a history of chronic costochondritis and has chest pain all the time. She states this is no worse than usual. She denies fever. She has a history of anemia and had an admission in September for transfusion. Denies black stool or blood in her stool. She denies other complaints. Physical Examination: Vitals are stable. Patient is afebrile. Alert no acute distress. HEENT exam is unremarkable. Neck is supple. Lungs are diminished bilaterally. Heart is regular and tachycardic Abdomen is soft nontender nondistended. Extremities are unremarkable. Skin is warm and dry. No focal neurologic deficit. Remainder of exam is unremarkable. Emergency Department Course and Treatment: Patient was given albuterol, Atrovent aerosols. Chest x-ray shows no acute process. EKG is sinus tachycardia rate of 103. CBC shows a hemoglobin of 5.9, chemistries show glucose 131. Troponin is negative. D-dimer negative. Patient states she has had 3 colonoscopies in the last year which were unremarkable. She was typed and crossed for 2 units packed red blood cells. Discussed with the hospitalist for admission. Disposition: Admission Impression: Symptomatic anemia This note was generated with Gl[employer] dictation software. It may contain incorrect words, spelling, and punctuation that were not noted in review of the chart prior to signing ED Disposition - Plan for ED Patient: Referrals: Omar Mosqueda,Out of [Primary Care Provider] -
--- NOTE | 2019-01-04 16:36 | RAD_ITS ---
STUDY: X-RAY CHEST REASON FOR EXAM: Female, 73 years old. Shortness of breath TECHNIQUE: Frontal view of the chest COMPARISON: 12/09/2018 FINDINGS: The lungs are clear. There are no pleural effusions. There is no pneumothorax. The heart is normal in size. The visualized osseous structures are within normal limits. RAD/Chest 1 View (Portable) IMPRESSION: No acute thoracic pathology. Electronically Signed: Bandar Bailey, at 16:53 EDT Tel , Service support ,
[2019-01-04] MEDS: Ipratropium/Albuterol Sulfate 3 ML AMPUL.NEB INHALATION (16:55)
[2019-01-04 17:08] LABS: Absolute Lymphocyte Count 1.72 X10^3/uL (0.83-4.51); Absolute Neutrophil Count 3.5 X10^3/uL (2.0-7.7); Basophil# 0.03 X10^3/uL; Basophil% 0.5 % (0-1); Eosinophil# 0.15 X10^3/uL; Eosinophils% 2.7 % (0-5); Hematocrit 19.6 % (37-47); Lymphocyte # 1.72 X10^3/ul (4.0); Lymphocyte % 30.4 % (19-41); Mean Corp Hgb Conc 30.1 g/dL (32-36); Mean Corpuscular Hgb 26.1 pg (27.0-32.0); Mean Corpuscular Volume 86.7 fL (81-99); Mean Platelet Vol. 9.4 fl (6.2-12.0); Monocyte# 0.27 X10^3/uL; Monocyte% 4.8 % (0-10); NRBC Flagged by Analyzer 0 % (0-5); Neutrophil # 3.46 X10^3/uL (2.7-7.7); Neutrophil % 61.2 % (47-70); POSITIVE COUNT YES; POSITIVE MORPHOLOGY YES; Platelet Count 237 K/mm3 (150-450); RBC Distribution Width CV 15.2 % (11.6-14.6); RBC Distribution Width SD 47.7 fl (35.1-43.9); Red Blood Count 2.26 M/mm3 (4.2-5.4); White Blood Count 5.7 K/mm3 (4.4-11.0)
[2019-01-04 17:19] LABS: Anion Gap 7 (5-15); BUN 13 mg/dL (7-18); Calcium,Total 7.9 mg/dL (8.5-10.1); Chloride 109 mmol/L (98-107); Creatinine, Serum 0.82 mg/dL (0.55-1.02); EST Glomerular Filtration Rate 73 mL/min (>60); Est Glom Filt Rate - Afr Amer 88 mL/min (>60); Estimated Creatinine Clearance 52.76 ml/min; Glucose 131 mg/dL (74-106); Potassium 3.5 mmol/L (3.5-5.1); Sodium Level 140 mmol/L (136-145)
[2019-01-04 17:24] LABS: Differential Indicated SCAN CRITERIA MET
[2019-01-04 17:28] LABS: Hemoglobin 5.9 g/dL (12.0-15.0)
[2019-01-04] MEDS: Pramipexole Di-HCl 0.5 MG Tablet PO ×2 (17:57→22:06)
[2019-01-04] MEDS: Ondansetron 4 MG/2 ML Vial IV (17:58)
[2019-01-04] MEDS: Morphine 4 MG/ML Syringe IV (17:58)
[2019-01-04 18:03] LABS: D-Dimer Quantitative (DVT/PE) < 0.27 FEU/ug/m (0.27-0.49)
[2019-01-04 18:07] LABS: Anisocytosis 1+; Differential Comment SCANNED; Platelet Estimate ADEQUATE (ADEQ)
[2019-01-04 18:08] LABS: Hypochromasia 1+; Ovalocyte RARE; Tear Drop Cell RARE
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
[2019-01-04] MEDS: cycloBENZAPRine HCl 10 MG Tablet PO (20:49)
[2019-01-04] MEDS: Acetaminophen 325 MG Tablet 650 MG PO (20:49)
[2019-01-04 21:07] LABS: Hematocrit 18.9 % (37-47); POSITIVE COUNT YES
[2019-01-04 21:09] LABS: Hemoglobin 5.5 g/dL (12.0-15.0)
[2019-01-04] MEDS: Methadone 10 MG Tablet PO (22:12)
[2019-01-04] MEDS: Zolpidem Tartrate 5 MG Tablet PO (22:12)
[2019-01-04] MEDS: morphine (oral solution) 10MG/0.5ML Syringe 15 MG PO (22:12)
[2019-01-05] VITALS (22 sets, daily range): BP systolic 92–137; BP diastolic 39–75; PULSE 70–101; RESP 13–18; TEMP 36.1–37.2; O2SAT 94–100; BMI 27.6
[2019-01-05] MEDS: oxyCODONE 5 MG Tablet 10 MG PO ×2 (01:45→18:37)
[2019-01-05] MEDS: morphine (oral solution) 10MG/0.5ML Syringe 15 MG PO ×4 (03:06→14:28)
[2019-01-05] MEDS: Albuterol 2.5 MG/3 ML VIAL.NEB. INHALATION (04:00)
[2019-01-05] MEDS: 0.9% Normal Saline 1,000 ML 125 ML IV ×2 (05:07→17:06)
--- NOTE | 2019-01-05 05:55 | EKG12_ITS ---
Test Reason : AM EKG Blood Pressure : / mmHG Vent. Rate : 099 BPM Atrial Rate : 099 BPM P-R Int : 142 ms QRS Dur : 072 ms QT Int : 370 ms P-R-T Axes : 031 032 033 degrees QTc Int : 474 ms Normal sinus rhythm Normal ECG When compared with ECG of 04-JAN-2019 16:41, MANUAL COMPARISON REQUIRED, DATA IS UNCONFIRMED Confirmed by TAHIR DUEÑAS, RUTH ([id number]), scientific publications editor JERSON GARZA ([id number]) on 01/10/2019 1:55:16 PM Referred By: Louise Wei Confirmed By:JE HARO MD
[2019-01-05 06:21] LABS: Absolute Lymphocyte Count 2.38 X10^3/uL (0.83-4.51); Absolute Neutrophil Count 2.6 X10^3/uL (2.0-7.7); Basophil# 0.04 X10^3/uL; Basophil% 0.7 % (0-1); Eosinophil# 0.26 X10^3/uL; Eosinophils% 4.5 % (0-5); Hematocrit 24.1 % (37-47); Hemoglobin 7.6 g/dL (12.0-15.0); Lymphocyte # 2.38 X10^3/ul (4.0); Lymphocyte % 41.6 % (19-41); Mean Corp Hgb Conc 31.5 g/dL (32-36); Mean Corpuscular Hgb 27.2 pg (27.0-32.0); Mean Corpuscular Volume 86.4 fL (81-99); Monocyte# 0.44 X10^3/uL; Monocyte% 7.7 % (0-10); NRBC Flagged by Analyzer 0 % (0-5); Neutrophil # 2.59 X10^3/uL (2.7-7.7); Neutrophil % 45.3 % (47-70); Platelet Count 210 K/mm3 (150-450); RBC Distribution Width CV 14.8 % (11.6-14.6); RBC Distribution Width SD 46.3 fl (35.1-43.9); Red Blood Count 2.79 M/mm3 (4.2-5.4); White Blood Count 5.7 K/mm3 (4.4-11.0)
[2019-01-05 06:23] LABS: International Normalized Ratio 1.3; Prothrombin Time (Protime)PT. 15.6 SECONDS (11.7-14.9)
[2019-01-05 06:24] LABS: Partial Thromboplast Time 29.3 Seconds (24.1-36.2)
[2019-01-05 06:41] LABS: Anion Gap 8 (5-15); BUN 15 mg/dL (7-18); BUN/Creat Ratio 20.2 RATIO (10-20); Calcium,Total 7.6 mg/dL (8.5-10.1); Chloride 114 mmol/L (98-107); Creatinine, Serum 0.74 mg/dL (0.55-1.02); EST Glomerular Filtration Rate 81 mL/min (>60); Est Glom Filt Rate - Afr Amer 99 mL/min (>60); Estimated Creatinine Clearance 43.27 ml/min; Glucose 91 mg/dL (74-106); Potassium 3.6 mmol/L (3.5-5.1); Sodium Level 144 mmol/L (136-145)
[2019-01-05] MEDS: Citalopram 40 MG TABLET PO (08:11)
[2019-01-05] MEDS: Pramipexole Di-HCl 0.5 MG Tablet PO ×4 (08:11→22:36)
[2019-01-05] MEDS: amLODIPine 5 MG Tablet PO (08:11)
[2019-01-05] MEDS: Loratadine 10 MG Tablet PO (08:11)
[2019-01-05] MEDS: Atenolol 25 MG Tablet PO (08:11)
[2019-01-05] MEDS: Methadone 10 MG Tablet PO ×2 (08:12→14:28)
[2019-01-05] MEDS: 0.9% NaCl Peripheral Flush Adult/Peds IV (10:03)
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
--- NOTE | 2019-01-05 12:15 | EGD_PTH ---
PATIENT: CANDICE CASTELLON LOC: [facility] U#:[id number] AGE/SX: 73/F ROOM: [facility] RE01/04/[address]: Dr. Shai Helms MD : 1945 BED: 1 DIS: 01/10/2019 SPEC #: [id number] RECD: 01/05/19 13:24 STATUS: THANIA DEWEY #: [id number] ANGELA: 01/05/19 12:[address]: Maicol Gold DEPT: SURGICAL PATHOLOGY RECD BY: Gwyn Batres ENTERED: 01/05/19 13:56 SP TYPE: EGD BIOPSY [facility] DR: MD Dr. Alena Ramos DO Dr. Lapman Lun, MD Tissues: Gastric mucous membrane Procedures: Surgery Specimen Level IV HEADER OPERATION: EGD ([place]) PRE-OP DIAGNOSIS: Anemia TISSUE SUBMITTED: Antrum biopsy for H. pylori and path MICROSCOPIC DIAGNOSIS Antrum biopsy: Mild gastritis. See microscopic description and comment. MAMIE:guerda 01/06/19 COMMENT The results of immunohistochemistry for Helicobacter pylori will be reported separately ([id number]). MICROSCOPIC DESCRIPTION Slides are reviewed. The specimen shows fragments of gastric mucosa with chronic inflammatory cell infiltrates in the lamina propria consisting of lymphocytes and plasma cells, consistent with mild chronic gastritis. GROSS DESCRIPTION Received in fixative is one container labeled with the patient's name and designated antrum biopsy. The specimen consists of one irregular fragment of light joshi soft tissue that measures 0.4 x 0.3 x 0.1 cm. The specimen is totally submitted in one cassette. / MAMIE:guerda 01/05/19 TC:5 [facility]: [id number]
--- NOTE | 2019-01-05 12:15 | IMM_PTH ---
PATIENT: CANDICE CASTELLON LOC: [facility] U#:[id number] AGE/SX: 73/F ROOM: [facility] RE01/04/[address]: Dr. Shai Helms MD : 1945 BED: 1 DIS: 01/10/2019 SPEC #: [id number] RECD: 01/05/19 15:34 STATUS: THANIA REAntonia #: [id number] ANGELA: 01/05/19 12:[address]: Maicol Gold DEPT: IMMUNOHISTOCHEMISTRY RECD BY: Marilyn Powers ENTERED: 01/05/19 15:34 SP TYPE: IMMUNO OTHR DR: MD Dr. Alena Ramos DO Dr. Lapman Lun, MD Tissues: Stomach, NOS Procedures: H Pylori (initial) PHYSICIAN & INSTITUTION [place] [id number] SPECIMEN INFORMATION: Tissue Source: Antrum biopsy Clinical Info: Anemia Specimen Number: [id number] CPT code: 56635 METHODOLOGY: Deparaffinized sections of prefer/formalin-fixed tissue or PAP/DQ stained slides are incubated with monoclonal/polyclonal antibodies/oligonucleotide probes. Localization is made via biotin free immunoperoxidase method. Appropriate controls are performed and reacted as expected. Results on target cell population are indicated in the following table: RESULTS: ANTIBODY / CLONE RESULT H Pylori (polyclonal) negative These tests were developed and their performance characteristics determined by [facility]. They may not have been cleared or approved by the U.S. Food and Drug Administration. The FDA has determined that such clearance or approval is not necessary. INTERPRETATION: Antrum biopsy: Negative for Helicobacter pylori organisms. SJ:guerda 01/06/19
--- NOTE | 2019-01-05 12:50 | OP.ENDO_ITS ---
01/05/2019 Zach Re : Upper GI endoscopy procedure for Nehal Helms Dear Zach This procedure was performed on December. My impressions and recommendations are as follows: Impressions : - Normal examined jejunum. - Normal examined duodenum. - Gastritis. Biopsied. - Normal esophagus. Recommendations : - Resume regular diet. - Use Protonix (pantoprazole) 40 mg PO daily. - Continue present medications. My findings are described in the full procedure note, which is enclosed. If I can be of further assistance, please feel free to contact me at Doctor phone number(s): , Work: . Sincerely, Maicol Gold MD 01/05/2019 12:49:47 PM This report has been signed electronically.
--- NOTE | 2019-01-05 13:08 | CASEMGMT ---
RN CM Assessment Presentation: GIB. H/H 5.5/18.9, 5 units PRBC transfused Intro role of CM and purpose of RN CM assessment to her in room, pt is at testing. Demographics, PCP and Pharmacy verified. states pt is very independent. They are staying in local camp[place] for summer, then plan to return to their home in [place]. PCP: Dr. Bradley Howard [place], [place] PH: FX: Specialists: Dr. Gold Preferred Pharmacy: [facility] Insurance: An[employer] Medicare HMO Prescription Benefit: yes LNOK: , Luis Fernando Helms Living Arrangements: Pt lives independently in [address] [place] at local [facility] for summer while they visit with family, friends. Intend to return to their home in [place] eventually. Transportation: drives DME: cane, uses occasionally only HHC: none Patient DC goals: Home DC PLAN: Home with family support. GIOVANI GARRETT BSN ACM
[2019-01-05] MEDS: Acetaminophen 325 MG Tablet 650 MG PO ×2 (13:12→22:30)
--- NOTE | 2019-01-05 13:50 | PN_ITS ---
Patient Problems: Active and Suspected Problems Anemia (Acute) Subjective: Patient seen and examined. Reports she feels significantly improved following receiving blood. Dyspnea and fatigue improved. Denies current complaints. - Physical Exam General: Alert, Oriented x3, Cooperative HEENT: Atraumatic, PERRLA, EOMI, Normocephalic Neck: Supple, No JVD, Negative Carotid Bruits Lungs: Clear to auscultation, Normal air movement Cardiovascular: Regular rate, Regular Rhythm, Normal S1, Normal S2, No murmurs Abdomen: Bowel Sounds Present, Soft, Non Tender, Non-Distended Extremities: No clubbing, No cyanosis, No edema, Capillary Refill Less than 3 Seconds Skin: No rashes, No breakdown Musculoskeletal: No Tenderness to Palpation of Joints or Extremities Neurological: Cranial nerves II-XII grossly intact, Neuro grossly intact Psych/Mental Status: Normal Affect, Appropriate Vital Signs Temp Pulse Resp BP Pulse Ox 97.9 F 74 18 107/74 96 01/05/19 13:44 01/05/19 13:44 01/05/19 13:44 01/05/19 13:44 01/05/19 13:44 Oxygen Flow Rate (L/min) 2 Oxygen Delivery Method Room Air Weight: 161 lb 6.054 oz Body Mass Index (BMI) 27.6 Intake and Output for Last 24 Hours 01/03/19 01/04/19 01/05/19 23:59 23:59 23:59 Intake Total 0 / 0 4151.8 / 4151.8 Output Total 1000 / 1000 Balance 0 / 0 3151.8 / 3151.8 Microbiology Past 72 Hours 01/04/19 17:54 Stool Occult Blood (PHUC) - Final Stool Laboratory Tests Past 24 Hrs 01/04/19 01/04/19 01/04/19 16:48 16:48 16:48 WBC 5.7 RBC 2.26 L Hgb 5.9 L* Hct 19.6 L MCV 86.7 MCH 26.1 L MCHC 30.1 L RDW Std Deviation 47.7 H RDW Coeff of Dania 15.2 H Plt Count 237 MPV 9.4 Immature Gran % (Auto) 0.400 Neut % (Auto) 61.2 Lymph % (Auto) 30.4 Dickens % (Auto) 4.8 Eos % (Auto) 2.7 Baso % (Auto) 0.5 Absolute Neuts (auto) 3.5 Absolute Lymphs (auto) 1.72 Nucleated RBC % 0 Differential Comment SCANNED Diff Path Review May foll Platelet Estimate ADEQUATE Hypochromasia 1+ Anisocytosis 1+ Tear Drop Cells RARE Ovalocytes RARE PT INR APTT D-Dimer Quant (PE/DVT) Sodium 140 Potassium 3.5 Chloride 109 H Carbon Dioxide 24.0 Anion Gap 7 BUN 13 Creatinine 0.82 Estim Creat Clear Calc 52.76 Est GFR (MDRD) Af Amer 88 Est GFR (MDRD) Non-Af 73 BUN/Creatinine Ratio 16.0 Glucose 131 H Calcium 7.9 L Troponin I < 0.015 Blood Type A NEGATIVE Antibody Screen NEGATIVE Crossmatch See Detail 01/04/19 01/04/19 01/05/19 17:17 20:48 06:00 WBC 5.7 RBC 2.79 L Hgb 5.5 L* 7.6 L Hct 18.9 L 24.1 L MCV 86.4 MCH 27.2 MCHC 31.5 L RDW Std Deviation 46.3 H RDW Coeff of Dania 14.8 H Plt Count 210 MPV 9.0 Immature Gran % (Auto) 0.200 Neut % (Auto) 45.3 L Lymph % (Auto) 41.6 H Dickens % (Auto) 7.7 Eos % (Auto) 4.5 Baso % (Auto) 0.7 Absolute Neuts (auto) 2.6 Absolute Lymphs (auto) 2.38 Nucleated RBC % 0 Differential Comment Diff Path Review Platelet Estimate Hypochromasia Anisocytosis Tear Drop Cells Ovalocytes PT INR APTT D-Dimer Quant (PE/DVT) < 0.27 L Sodium Potassium Chloride Carbon Dioxide Anion Gap BUN Creatinine Estim Creat Clear Calc Est GFR (MDRD) Af Amer Est GFR (MDRD) Non-Af BUN/Creatinine Ratio Glucose Calcium Troponin I Blood Type Antibody Screen Crossmatch 01/05/19 01/05/19 06:00 06:00 WBC RBC Hgb Hct MCV MCH MCHC RDW Std Deviation RDW Coeff of Dania Plt Count MPV Immature Gran % (Auto) Neut % (Auto) Lymph % (Auto) Dickens % (Auto) Eos % (Auto) Baso % (Auto) Absolute Neuts (auto) Absolute Lymphs (auto) Nucleated RBC % Differential Comment Diff Path Review Platelet Estimate Hypochromasia Anisocytosis Tear Drop Cells Ovalocytes PT 15.6 H INR 1.3 APTT 29.3 D-Dimer Quant (PE/DVT) Sodium 144 Potassium 3.6 Chloride 114 H Carbon Dioxide 22.0 Anion Gap 8 BUN 15 Creatinine 0.74 Estim Creat Clear Calc 43.27 Est GFR (MDRD) Af Amer 99 Est GFR (MDRD) Non-Af 81 BUN/Creatinine Ratio 20.2 H Glucose 91 Calcium 7.6 L Troponin I Blood Type Antibody Screen Crossmatch Medical Necessity - Tobacco Use Smoking Status: Current every day smoker Tobacco Use: Cigarettes Assessment/Plan All Active Problems Severe symtomatic anemia (Acute) Anemia (Acute) 1. Acute on chronic anemia, iron deficiency anemia-Dr. Gold consulted. Plan for upper endoscopy tomorrow. Stool for occult blood negative. Patient has history of gastric ulcer. She reports she follows with hematology in [place] where she resides during the winter. She reports hematology has discussed bone marrow examination. Dr. Serrano consulted. Hemoglobin 5.9 on admission. Status post 2 units PRBC. Hemoglobin now 7.6. Trend CBC. IV iron x5 bags. IV PPI. Patient has been on oral iron supplementation however she is also on high-dose PPI. Of note, she also has a history of multiple bowel surgeries with multiple resections and history of colostomy status post reversal. This may contribute to iron absorption. 2. 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 Dr. Serrano consulted as noted above. 3. GERD-patient reports she has a history of severe acid reflux. She is on both ranitidine 150 mg daily and Protonix 40 mg twice daily. 4. Chronic pain syndrome-follows with pain management in [place] however she reports her insurance has not approved her to see pain management while she is in [place]. PRN pain regimen. She reports she has been taking extra strength Tylenol and NSAIDs at home. Has not been taking narcotics. 5. Hypertension-stable, continue home amlodipine, atenolol regimen. 6. Depression-continue home citalopram regimen. 7. Tobacco dependence-encouraged smoking cessation. DVT prophylaxis-SCDs, Xarelto on hold given #1. This patient was seen by SHARA Leary under the supervision of Dr. Quinteros.
[2019-01-05] MEDS: Ferrous Sulfate 325 MG Tablet PO ×2 (14:27→17:19)
[2019-01-05 14:33] LABS: Pathologist Review Reviewed
[2019-01-05] MEDS: Ondansetron 4 MG/2 ML Vial IV (17:11)
[2019-01-05] MEDS: DiphenhydrAMINE 25 MG Capsule PO (17:19)
[2019-01-05 19:11] LABS: Platelet Count 237 K/mm3 (150-450); RET-HE 24.8 pg (30-35); Reticulocyte Count 2.68 % (0.5-1.5)
[2019-01-05 19:19] LABS: Ferritin 18 ng/mL (8-252); Iron 49 ug/dL (50-170); Iron Binding Capacity,Total 326 ug/dL (250-450)
[2019-01-05] MEDS: Zolpidem Tartrate 5 MG Tablet PO (22:37)
--- NOTE | 2019-01-05 22:55 | NURSING ---
Verbal report given to Armida Lawson RN. She will resume care of patient at this time.
[2019-01-06] VITALS (13 sets, daily range): BP systolic 122–145; BP diastolic 54–77; PULSE 80–95; RESP 16–18; TEMP 36.8–37.2; O2SAT 94–97
[2019-01-06] MEDS: 0.9% Normal Saline 1,000 ML 125 ML IV ×2 (01:38→09:33)
[2019-01-06] MEDS: oxyCODONE 5 MG Tablet 10 MG PO (01:38)
[2019-01-06] MEDS: 0.9% NaCl Peripheral Flush Adult/Peds IV ×5 (01:40→22:38)
[2019-01-06 05:41] LABS: Hematocrit 23.3 % (37-47); Mean Corpuscular Hgb 26.4 pg (27.0-32.0); Mean Corpuscular Volume 87.9 fL (81-99); Mean Platelet Vol. 10.2 fl (6.2-12.0); Platelet Count 211 K/mm3 (150-450); RBC Distribution Width CV 15.4 % (11.6-14.6); RBC Distribution Width SD 49.1 fl (35.1-43.9); Red Blood Count 2.65 M/mm3 (4.2-5.4); White Blood Count 5.1 K/mm3 (4.4-11.0)
[2019-01-06 06:28] LABS: AST(SGOT) 11 U/L (15-37); Alanine Aminotransfer ALT/SGPT 14 U/L (13-56); Albumin, Serum 2.8 g/dL (3.2-5.0); Alkaline Phosphatase 45 U/L (45-117); Bilirubin, Direct < 0.05 mg/dL (0.00-0.30); Globulin 2.9 g/dL (2.2-4.2); Protein, Total 5.7 g/dL (6.4-8.2)
--- NOTE | 2019-01-06 07:53 | PCM.CONS.B ---
Problem List (1) Severe symtomatic anemia Status: Acute (2) Anemia Status: Suspected Qualifiers: Anemia type: iron deficiency Iron deficiency anemia type: chronic blood loss Qualified Code(s): D50.0 - Iron deficiency anemia secondary to blood loss (chronic) Comment: R/O MDS or refractory anemia - Consult Date of Consult: 01/06/[address] Gold regarding a patient with refractory anemia, my final recommendations will be communicated to Dr. Aleman and also by electronic medical records. - Reason for Consult History of Present Illness Date of Admission: 01/04/19 Chief Complaint: SOB & fatigue. The patient is a 73 year old F with pmhx of chronic anemia her whole life, gastric ulcer, GERD, hiatal hernia, nicotine abuse, recurrent PE's, on Xarelto, and chronic pain who presents to the ER with SOB. This has been worsening for the last 2 weeks. She Continues to smoke 2-3 cigs per day. She has nausea and vomiting, no diarrhea. No coffee ground emesis, no black or red stools. She has hgb of 5.9 in the ER. She was here for the same in September and had upper and lower scopes with Dr. Khan which revealed a nonbleeding gastric ulcer. She has been on Xarelto because of recurrent PE. She has never had a hypercoagulable workup. She wanted to follow up with Dr. Roberson/Maggie however she cannot because her insurance only pays for outpatient visits in [place] where she is from - although she now lives in [place]. She had seen a evp managing director in [place] and was getting IV iron and blood transfusion on a regular basis. Her last blood transfusion was in September. Previously, after receiving IV iron she did not have a blood transfusion for over 3 months. Since this admission, patient had upper endoscopy and colonoscopy both were negative, as well as stool with heme negative. However, she has been off Xarelto since this admission. Past Medical History Past Medical History (Chronic Problems): Chronic Problems Hypertension (Chronic) Pulmonary embolism (Chronic) Hiatus hernia with GERD (Chronic) Chronic pain syndrome (Chronic) Chronic costochondritis (Chronic) Nicotine abuse (Chronic) Allergies celecoxib [From Celebrex] Allergy (Verified 01/04/19 15:55) Anaphylaxis paroxetine [From Paxil] Allergy (Verified 01/04/19 15:55) Other heart arrhythmia pregabalin [From Lyrica] Allergy (Verified 01/04/19 15:55) Nausea Sjzzslr-Nfo-Zzq Reductase Inhibitor Allergy (Verified 01/04/19 15:55) Chest tightness Sulfa (Sulfonamide Antibiotics) Allergy (Verified 01/04/19 15:55) Anaphylaxis zolmitriptan [From Zomig] Allergy (Verified 01/04/19 15:55) Anaphylaxis zomax Allergy (Severe, Uncoded 01/04/19 15:55) Anaphylaxis Home Medications: Ambulatory Orders Medication Instructions Recorded Amlodipine [Norvasc] 5 mg PO DAILY 10/16/18 Atenolol [Tenormin (beta jese)] 25 mg PO DAILY 10/16/18 Citalopram [Celexa] 40 mg PO DAILY 10/16/18 Diazepam [Valium] 2 mg PO TID PRN PRN 10/16/18 Oxycodone HCl/Acetaminophen 1 tablet PO Q4H PRN PRN 10/16/18 [Percocet 10-325 mg Tablet] Prochlorperazine Maleate 5 mg PO Q4H PRN PRN 10/16/18 [Compazine] Rivaroxaban [Xarelto] 20 mg PO DAILY 10/16/18 Ropinirole HCl [Requip] 1 mg PO 4X/DAY 10/16/18 cycloBENZAPRine HCl [Flexeril] 10 mg PO BID PRN PRN 10/16/18 Ferrous Sulfate 325 mg PO BID #60 tablet 10/18/18 Cetirizine HCl 10 mg PO QHS 01/04/19 Methadone HCl [(None)] 10 mg PO 4X/DAY 01/04/19 Morphine [Morphine IR] 15 mg PO Q4H PRN PRN 01/04/19 Pantoprazole Sodium 40 mg PO BID 01/04/19 Ranitidine HCl 150 mg PO DAILY 01/04/19 Zolpidem Tartrate 10 mg PO QHS 01/04/19 Surgical History: - - Exploratory laparotomy with bowel resection and colostomy and colostomy reversal. 50 reconstructive surgeries. 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 Denies: Chills, Fever, Weight Change HEENT: Denies: Head Aches, Sinus Congestion, Sinus Drainage Cardiovascular: Reports: Light Headedness. Denies: Chest Pain, Chest Pressure, Chest Tightness, Edema, Heaviness, Palpitations Respiratory: Reports: Shortness of Breath, Shortness of breath at rest, Shortness of breath upon exertion, - - conversational dyspnea. Denies: Cough, Sputum production, Wheezing Gastrointestinal: Reports: Diarrhea, Nausea, Vomiting. Denies: Abdominal Pain Genitourinary: Denies: Dysuria, Hematuria Musculoskeletal: Denies: Joint Pain, Joint Tenderness Skin: Denies: Rash, Wounds Neurological: Denies: Numbness, Tingling, Focal weakness Psychiatric: Denies: Anxiety, Depression, Homicidal Ideations, Suicidal Ideations Hematologic/ Lymphatic: Denies: Easy Bruising, Easy Bleeding Anemia (Acute/Chronic) - Physical Exam General: Alert, Oriented x3, Cooperative HEENT: Atraumatic, PERRLA, EOMI, Normocephalic, + Pallor Neck: Supple, No JVD, Negative Carotid Bruits Lungs: Clear to auscultation, Normal air movement Cardiovascular: Regular rate, No murmurs Abdomen: Bowel Sounds Present, Soft, Non Tender Extremities: No edema, Capillary Refill Less than 3 Seconds Skin: No rashes, No breakdown Musculoskeletal: No Tenderness to Palpation of Joints or Extremities Neurological: Cranial nerves II-XII grossly intact Psych/Mental Status: Normal Affect, Appropriate, Alert and oriented to time, place, person, mood and affect Vital Signs Temp Pulse Resp BP Pulse Ox 97.8 F 98 16 126/74 H 99 01/04/19 15:56 01/04/19 16:56 01/04/19 16:56 01/04/19 15:56 01/04/19 16:56 Oxygen Flow Rate (L/min) 3 Oxygen Delivery Method Nasal Cannula Weight: 158 lb Body Mass Index (BMI) 27.1 Microbiology Past 72 Hours 01/04/19 17:54 Stool Occult Blood (PHUC) - Final Stool Laboratory Tests Past 24 Hrs 01/04/19 01/05/19 01/05/19 16:48 06:00 06:00 WBC RBC Hgb Hct MCV MCH MCHC RDW Std Deviation RDW Coeff of Dania Plt Count MPV Diff Path Review Reviewed Retic Count 2.68 H Immature Retic Fraction 28.30 H Retic Hgb Equivalent 24.8 L Iron 49 L TIBC 326 Iron Saturation 15.0 Ferritin 18 Total Bilirubin Direct Bilirubin AST ALT Alkaline Phosphatase Total Protein Albumin Globulin 01/06/19 01/06/19 05:06 05:06 WBC 5.1 RBC 2.65 L Hgb 7.0 L Hct 23.3 L MCV 87.9 MCH 26.4 L MCHC 30.0 L RDW Std Deviation 49.1 H RDW Coeff of Dania 15.4 H Plt Count 211 MPV 10.2 Diff Path Review Retic Count Immature Retic Fraction Retic Hgb Equivalent Iron TIBC Iron Saturation Ferritin Total Bilirubin 0.10 L Direct Bilirubin < 0.05 AST 11 L ALT 14 Alkaline Phosphatase 45 Total Protein 5.7 L Albumin 2.8 L Globulin 2.9 Assessment/Plan All Active Problems Severe symtomatic anemia (Acute) 1) chronic anemia; normocytic normochromic anemia -multifactorial in nature including: Iron deficiency, nutritionally related, anemia of chronic disease, rule out refractory anemia or low-grade MDS 2) history of recurrent pulmonary embolism -D-dimer is normal & patient is asymptomatic; no evidence of PE Recommendations: -Proceed with bone marrow biopsy today for evaluation of refractory anemia. -Check cytogenetics and MDS FISH panel -Iron stain for iron deficiency -Hold Xarelto x 2 weeks and check hypercoagulable panel. (Outpatient Labs) -Repeat CBC and iron study (fasting), vitamin B12, folic acid, methylmalonic acid and reticulocyte count in 2 weeks -Possible IV iron as outpatient or in the hospital if she has iron deficiency anemia. -Follow-up in my office in 2 weeks. cc: Dr. Tin Serrano; Dr. Maicol Gold; Dr. Louise Wei
[2019-01-06] MEDS: amLODIPine 5 MG Tablet PO (08:27)
[2019-01-06] MEDS: Citalopram 40 MG TABLET PO (08:27)
[2019-01-06] MEDS: Pramipexole Di-HCl 0.5 MG Tablet PO ×4 (08:27→21:09)
[2019-01-06] MEDS: Atenolol 25 MG Tablet PO (08:27)
[2019-01-06] MEDS: Loratadine 10 MG Tablet PO (08:27)
[2019-01-06] MEDS: Acetaminophen 325 MG Tablet 650 MG PO ×2 (09:37→21:08)
[2019-01-06] MEDS: Ferrous Sulfate 325 MG Tablet PO ×2 (12:25→18:01)
[2019-01-06] MEDS: Ondansetron 4 MG/2 ML Vial IV (14:07)
--- NOTE | 2019-01-06 14:11 | PCM.PROGNOTE ---
<Carley Shields - Last Filed: 01/06/19 14:19> Patient Problems: Active and Suspected Problems Anemia (Suspected) R/O MDS or refractory anemia Subjective: Patient seen and examined. Feels improved. Tolerating diet without difficulty. To receive another unit of blood today for hemoglobin of 7. - Physical Exam General: Alert, Oriented x3, Cooperative HEENT: Atraumatic, PERRLA, EOMI, Normocephalic Neck: Supple, No JVD, Negative Carotid Bruits Lungs: Clear to auscultation, Normal air movement Cardiovascular: Regular rate, Regular Rhythm, Normal S1, Normal S2, No murmurs Abdomen: Bowel Sounds Present, Soft, Non Tender, Non-Distended Extremities: No clubbing, No cyanosis, No edema, Capillary Refill Less than 3 Seconds Skin: No rashes, No breakdown Musculoskeletal: No Tenderness to Palpation of Joints or Extremities Neurological: Cranial nerves II-XII grossly intact, Neuro grossly intact Psych/Mental Status: Normal Affect, Appropriate Vital Signs Temp Pulse Resp BP Pulse Ox 99.0 F 80 18 132/69 H 97 01/06/19 13:25 01/06/19 13:25 01/06/19 13:25 01/06/19 13:25 01/06/19 13:25 Oxygen Flow Rate (L/min) 2 Oxygen Delivery Method Room Air Weight: 161 lb 6.054 oz Body Mass Index (BMI) 27.6 Intake and Output for Last 24 Hours 01/04/19 01/05/19 01/06/19 23:59 23:59 23:59 Intake Total 0 / 0 5054.8 / 5054.8 2127 / 2127 Output Total 1900 / 1900 4050 / 4050 Balance 0 / 0 3154.8 / 3154.8 -1923 / -1923 Microbiology Past 72 Hours 01/04/19 17:54 Stool Occult Blood (PHUC) - Final Stool Laboratory Tests Past 24 Hrs 01/04/19 01/04/19 01/05/19 16:48 16:48 06:00 WBC RBC Hgb Hct MCV MCH MCHC RDW Std Deviation RDW Coeff of Dania Plt Count MPV Diff Path Review Reviewed Retic Count Immature Retic Fraction Retic Hgb Equivalent Iron 49 L TIBC 326 Iron Saturation 15.0 Ferritin 18 Total Bilirubin Direct Bilirubin AST ALT Alkaline Phosphatase Total Protein Albumin Globulin Crossmatch See Detail 01/05/19 01/06/19 01/06/19 06:00 05:06 05:06 WBC 5.1 RBC 2.65 L Hgb 7.0 L Hct 23.3 L MCV 87.9 MCH 26.4 L MCHC 30.0 L RDW Std Deviation 49.1 H RDW Coeff of Dania 15.4 H Plt Count 211 MPV 10.2 Diff Path Review Retic Count 2.68 H Immature Retic Fraction 28.30 H Retic Hgb Equivalent 24.8 L Iron TIBC Iron Saturation Ferritin Total Bilirubin 0.10 L Direct Bilirubin < 0.05 AST 11 L ALT 14 Alkaline Phosphatase 45 Total Protein 5.7 L Albumin 2.8 L Globulin 2.9 Crossmatch Medical Necessity - Tobacco Use Smoking Status: Current every day smoker Tobacco Use: Cigarettes Assessment/Plan All Active Problems Severe symtomatic anemia (Acute) 1. Acute on chronic anemia, iron deficiency anemia-Dr. Gold consulted. EGD without evidence of bleeding. Stool for occult blood negative. Patient has history of gastric ulcer. She reports she follows with hematology in [place] where she resides during the winter. She reports hematology has discussed bone marrow examination. Dr. Serrano consulted. Hemoglobin 5.9 on admission. Status post 2 units PRBC. Hemoglobin this morning 7 and additional 1 unit PRBC was given. Trend CBC. IV iron x5 bags. IV PPI. Patient has been on oral iron supplementation however she is also on high-dose PPI. Of note, she also has a history of multiple bowel surgeries with multiple resections and history of colostomy status post reversal. This may contribute to iron absorption. Dr. Serrano recommending bone marrow biopsy which was unable to be completed today. We will plan for Wednesday. Recommends holding Xarelto for 2 weeks and checking hypercoagulable panel. Will order lab work per Dr. Serrano recommendations. 2. 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 Dr. Serrano consulted as noted above. 3. GERD-patient reports she has a history of severe acid reflux. She is on both ranitidine 150 mg daily and Protonix 40 mg twice daily. 4. Chronic pain syndrome-follows with pain management in [place] however she reports her insurance has not approved her to see pain management while she is in [place]. PRN pain regimen. She reports she has been taking extra strength Tylenol and NSAIDs at home. Has not been taking narcotics. 5. Hypertension-stable, continue home amlodipine, atenolol regimen. 6. Depression-continue home citalopram regimen. 7. Tobacco dependence-encouraged smoking cessation. DVT prophylaxis-SCDs, Xarelto on hold given #1. This patient was seen by SHARA Leary under the supervision of Dr. Helms. <Shai Helms F - Last Filed: 01/06/19 15:18> - Physical Exam Vital Signs Temp Pulse Resp BP Pulse Ox 98.8 F 91 18 145/77 H 97 01/06/19 14:25 01/06/19 14:25 01/06/19 14:25 01/06/19 14:25 01/06/19 14:25 Oxygen Flow Rate (L/min) 2 Oxygen Delivery Method Room Air Weight: 161 lb 6.054 oz Body Mass Index (BMI) 27.6 Intake and Output for Last 24 Hours 01/04/19 01/05/19 01/06/19 23:59 23:59 23:59 Intake Total 0 / 0 5054.8 / 5054.8 2127 / 2127 Output Total 1900 / 1900 4050 / 4050 Balance 0 / 0 3154.8 / 3154.8 -1923 / -1923 Microbiology Past 72 Hours 01/04/19 17:54 Stool Occult Blood (PHUC) - Final Stool Laboratory Tests Past 24 Hrs 01/04/19 01/05/19 01/05/19 16:48 06:00 06:00 WBC RBC Hgb Hct MCV MCH MCHC RDW Std Deviation RDW Coeff of Dania Plt Count MPV Retic Count 2.68 H Immature Retic Fraction 28.30 H Retic Hgb Equivalent 24.8 L Iron 49 L TIBC 326 Iron Saturation 15.0 Ferritin 18 Total Bilirubin Direct Bilirubin AST ALT Alkaline Phosphatase Total Protein Albumin Globulin Crossmatch See Detail 01/06/19 01/06/19 05:06 05:06 WBC 5.1 RBC 2.65 L Hgb 7.0 L Hct 23.3 L MCV 87.9 MCH 26.4 L MCHC 30.0 L RDW Std Deviation 49.1 H RDW Coeff of Dania 15.4 H Plt Count 211 MPV 10.2 Retic Count Immature Retic Fraction Retic Hgb Equivalent Iron TIBC Iron Saturation Ferritin Total Bilirubin 0.10 L Direct Bilirubin < 0.05 AST 11 L ALT 14 Alkaline Phosphatase 45 Total Protein 5.7 L Albumin 2.8 L Globulin 2.9 Crossmatch Code Visit Addendum: Dr. Helms I personally examined the patient and reviewed the chart. I agree with the above. 33-year-old female presenting with acute on chronic kidney and iron deficiency anemia. She is from [facility] but is up here camping for the summer and plans to return there in the winter. She states that her primary care physician had a discussion with [facility] oncology here in [place] and had recommended a bone marrow biopsy that he has been unable to get insurance approval for as an outpatient. Oncology evaluated the patient and has recommended multiple different labs as well as Venofer infusions and a bone marrow biopsy to be done, hopefully today but probably on Wednesday. History history of PE and DVT and is therefore on Xarelto which was held. She also had an EGD done by general surgery who noted a fairly normal exam except for mild gastritis, biopsies are pending. No signs of bleeding on the EGD. Inpatient E&M: 92650 Subs Hosp L2
[2019-01-06] MEDS: Furosemide 20 MG/2 ML VIAL IV (15:36)
--- NOTE | 2019-01-06 17:07 | PCM.PN.SRG ---
Patient Problems: Active and Suspected Problems Anemia (Suspected) R/O MDS or refractory anemia Subjective: no complaints, no GI bleeding noted - Physical Exam General: Alert, Oriented x3, Cooperative Lungs: Clear to auscultation, Normal air movement Cardiovascular: Regular rate, No murmurs Abdomen: Bowel Sounds Present, Soft, Non Tender Vital Signs Temp Pulse Resp BP Pulse Ox 98.3 F 84 18 126/65 H 96 01/06/19 15:25 01/06/19 15:25 01/06/19 15:25 01/06/19 15:25 01/06/19 15:25 Oxygen Flow Rate (L/min) 2 Oxygen Delivery Method Room Air Weight: 73.2 kg Body Mass Index (BMI) 27.6 Intake and Output for Last 24 Hours 01/04/19 01/05/19 01/06/19 23:59 23:59 23:59 Intake Total 0 / 0 5054.8 / 5054.8 2527 / 2527 Output Total 1900 / 1900 4050 / 4050 Balance 0 / 0 3154.8 / 3154.8 -1523 / -1523 Microbiology Past 72 Hours 01/04/19 17:54 Stool Occult Blood (PHUC) - Final Stool Laboratory Tests Past 24 Hrs 01/04/19 01/05/19 01/05/19 16:48 06:00 06:00 WBC RBC Hgb Hct MCV MCH MCHC RDW Std Deviation RDW Coeff of Dania Plt Count MPV Retic Count 2.68 H Immature Retic Fraction 28.30 H Retic Hgb Equivalent 24.8 L Iron 49 L TIBC 326 Iron Saturation 15.0 Ferritin 18 Total Bilirubin Direct Bilirubin AST ALT Alkaline Phosphatase Total Protein Albumin Globulin Crossmatch See Detail 01/06/19 01/06/19 05:06 05:06 WBC 5.1 RBC 2.65 L Hgb 7.0 L Hct 23.3 L MCV 87.9 MCH 26.4 L MCHC 30.0 L RDW Std Deviation 49.1 H RDW Coeff of Dania 15.4 H Plt Count 211 MPV 10.2 Retic Count Immature Retic Fraction Retic Hgb Equivalent Iron TIBC Iron Saturation Ferritin Total Bilirubin 0.10 L Direct Bilirubin < 0.05 AST 11 L ALT 14 Alkaline Phosphatase 45 Total Protein 5.7 L Albumin 2.8 L Globulin 2.9 Crossmatch Medical Necessity - Tobacco Use Smoking Status: Current every day smoker Tobacco Use: Cigarettes Assessment/Plan All Active Problems Severe symtomatic anemia (Acute) shortness of breath, severe anemia I performed upper endoscopy. this demonstrated no abnormalities. the patient had positive stool for occult blood in September but currently has a negative stool for occult blood. iron studies were obtained in September. Would plan to repeat iron studies his hospitalization. Dr. Serrano was also consulted. He recommend bone marrow biopsy.
[2019-01-06] MEDS: Zolpidem Tartrate 5 MG Tablet PO (22:38)
[2019-01-07] VITALS (11 sets, daily range): BP systolic 126–148; BP diastolic 63–91; PULSE 79–95; RESP 16–18; TEMP 36.7–37.2; O2SAT 92–100
[2019-01-07 06:35] LABS: Hematocrit 29.6 % (37-47); Hemoglobin 9.6 g/dL (12.0-15.0); Mean Corp Hgb Conc 32.4 g/dL (32-36); Mean Corpuscular Hgb 27.7 pg (27.0-32.0); Mean Corpuscular Volume 85.5 fL (81-99); Mean Platelet Vol. 10.3 fl (6.2-12.0); Platelet Count 241 K/mm3 (150-450); RBC Distribution Width CV 14.6 % (11.6-14.6); RBC Distribution Width SD 45.1 fl (35.1-43.9); Red Blood Count 3.46 M/mm3 (4.2-5.4)
[2019-01-07] MEDS: Pramipexole Di-HCl 0.5 MG Tablet PO ×4 (07:44→21:30)
[2019-01-07] MEDS: amLODIPine 5 MG Tablet PO (07:45)
[2019-01-07] MEDS: Loratadine 10 MG Tablet PO (07:45)
[2019-01-07] MEDS: Citalopram 40 MG TABLET PO (07:45)
[2019-01-07] MEDS: Acetaminophen 325 MG Tablet 650 MG PO ×2 (07:57→17:25)
--- NOTE | 2019-01-07 08:58 | PCM.PN.SRG ---
Patient Problems: Active and Suspected Problems Anemia (Suspected) R/O MDS or refractory anemia Subjective: no signs of GI bleeding - Physical Exam Abdomen: Bowel Sounds Present, Soft, Non Tender Vital Signs Temp Pulse Resp BP Pulse Ox 98.9 F 90 16 148/91 H 93 01/07/19 08:01 01/07/19 08:01 01/07/19 08:01 01/07/19 08:01 01/07/19 08:01 Oxygen Flow Rate (L/min) 2 Oxygen Delivery Method Room Air Weight: 73.2 kg Body Mass Index (BMI) 27.6 Intake and Output for Last 24 Hours 01/05/19 01/06/19 01/07/19 23:59 23:59 23:59 Intake Total 5054.8 / 5054.8 3315 / 3315 Output Total 1900 / 1900 4050 / 4050 Balance 3154.8 / 3154.8 -735 / -735 Microbiology Past 72 Hours 01/04/19 17:54 Stool Occult Blood (PHUC) - Final Stool Laboratory Tests Past 24 Hrs 01/04/19 01/07/19 16:48 05:44 WBC 5.0 RBC 3.46 L Hgb 9.6 L Hct 29.6 L MCV 85.5 MCH 27.7 MCHC 32.4 RDW Std Deviation 45.1 H RDW Coeff of Dania 14.6 Plt Count 241 MPV 10.3 Crossmatch See Detail Medical Necessity - Tobacco Use Smoking Status: Current every day smoker Tobacco Use: Cigarettes Assessment/Plan All Active Problems Severe symtomatic anemia (Acute) shortness of breath, severe anemia I performed upper endoscopy. this demonstrated no abnormalities. the patient had positive stool for occult blood in September but currently has a negative stool for occult blood. iron studies were obtained in September. . Iron studies does demonstrate a degree of iron deficiency anemia. Dr. Serrano was also consulted. He recommend bone marrow biopsy. additionally recommended holding Plavix and obtaining hypercoagulability panel in 2 weeks
[2019-01-07] MEDS: proCHLORPERazine 5 MG Tablet PO (09:41)
[2019-01-07] MEDS: Atenolol 25 MG Tablet PO (10:23)
--- NOTE | 2019-01-07 11:23 | PN_ITS ---
<Carley Shields - Last Filed: 01/07/19 11:30> Patient Problems: Active and Suspected Problems Anemia (Suspected) R/O MDS or refractory anemia Subjective: Patient seen and examined. Hemoglobin remains stable. Patient denies current symptoms. - Physical Exam General: Alert, Oriented x3, Cooperative HEENT: Atraumatic, PERRLA, EOMI, Normocephalic Neck: Supple, No JVD, Negative Carotid Bruits Lungs: Clear to auscultation, Normal air movement Cardiovascular: Regular rate, Regular Rhythm, Normal S1, Normal S2, No murmurs Abdomen: Bowel Sounds Present, Soft, Non Tender, Non-Distended Extremities: No clubbing, No cyanosis, No edema, Capillary Refill Less than 3 Seconds Skin: No rashes, No breakdown Musculoskeletal: No Tenderness to Palpation of Joints or Extremities Neurological: Cranial nerves II-XII grossly intact, Neuro grossly intact Psych/Mental Status: Normal Affect, Appropriate Vital Signs Temp Pulse Resp BP Pulse Ox 98.9 F 90 16 148/91 H 93 01/07/19 08:01 01/07/19 08:01 01/07/19 08:01 01/07/19 08:01 01/07/19 08:01 Oxygen Flow Rate (L/min) 2 Oxygen Delivery Method Room Air Weight: 161 lb 6.054 oz Body Mass Index (BMI) 27.6 Intake and Output for Last 24 Hours 01/05/19 01/06/19 01/07/19 23:59 23:59 23:59 Intake Total 5054.8 / 5054.8 3315 / 3315 Output Total 1900 / 1900 4050 / 4050 Balance 3154.8 / 3154.8 -735 / -735 Microbiology Past 72 Hours 01/04/19 17:54 Stool Occult Blood (PHUC) - Final Stool Laboratory Tests Past 24 Hrs 01/04/19 01/07/19 16:48 05:44 WBC 5.0 RBC 3.46 L Hgb 9.6 L Hct 29.6 L MCV 85.5 MCH 27.7 MCHC 32.4 RDW Std Deviation 45.1 H RDW Coeff of Dania 14.6 Plt Count 241 MPV 10.3 Crossmatch See Detail Medical Necessity - Tobacco Use Smoking Status: Current every day smoker Tobacco Use: Cigarettes Assessment/Plan All Active Problems Severe symtomatic anemia (Acute) 1. Acute on chronic anemia, iron deficiency anemia-Dr. Gold consulted. EGD without evidence of bleeding. Stool for occult blood negative. Patient has history of gastric ulcer. She reports she follows with hematology in [place] where she resides during the winter. She reports hematology has discussed bone marrow examination. Dr. Serrano consulted. Hemoglobin 5.9 on admission. Patient has received 3 units PRBC. Hemoglobin stable, trend CBC. IV iron x5 bags. IV PPI. Patient has been on oral iron supplementation however she is also on high- dose PPI. Of note, she also has a history of multiple bowel surgeries with multiple resections and history of colostomy status post reversal. This may contribute to iron absorption. Dr. Serrano recommending bone marrow biopsy which was completed Wednesday. Recommends holding Xarelto for 2 weeks and checking hypercoagulable panel. Plan for discharge Wednesday following bone marrow biopsy and patient can follow-up with Dr. Serrano as outpatient for results. 2. 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 Dr. Serrano consulted as noted above. 3. GERD-patient reports she has a history of severe acid reflux. She is on both ranitidine 150 mg daily and Protonix 40 mg twice daily. 4. Chronic pain syndrome-follows with pain management in [place] however she reports her insurance has not approved her to see pain management while she is in [place]. PRN pain regimen. She reports she has been taking extra strength Tyle nol and NSAIDs at home. Has not been taking narcotics. Patient was receiving significant amount of narcotics in [place] including methadone, Percocet and morphine. She states she quit cold turkey and denies opioid withdrawal symptoms. Suspect patient may be diverting her prescriptions in [place]. Will attempt to contact [facility]/diversion. 5. Hypertension-stable, continue home amlodipine, atenolol regimen. 6. Depression-continue home citalopram regimen. 7. Tobacco dependence-encouraged smoking cessation. DVT prophylaxis-SCDs, Xarelto on hold given #1. This patient was seen by SHARA Leary under the supervision of Dr. Helms. <Shai Helms - Last Filed: 01/07/19 11:41> - Physical Exam Vital Signs Temp Pulse Resp BP Pulse Ox 98.9 F 90 16 148/91 H 93 01/07/19 08:01 01/07/19 08:01 01/07/19 08:01 01/07/19 08:01 01/07/19 08:01 Oxygen Flow Rate (L/min) 2 Oxygen Delivery Method Room Air Weight: 161 lb 6.054 oz Body Mass Index (BMI) 27.6 Intake and Output for Last 24 Hours 01/05/19 01/06/19 01/07/19 23:59 23:59 23:59 Intake Total 5054.8 / 5054.8 3315 / 3315 Output Total 1900 / 1900 4050 / 4050 Balance 3154.8 / 3154.8 -735 / -735 Microbiology Past 72 Hours 01/04/19 17:54 Stool Occult Blood (PHUC) - Final Stool Laboratory Tests Past 24 Hrs 01/04/19 01/07/19 16:48 05:44 WBC 5.0 RBC 3.46 L Hgb 9.6 L Hct 29.6 L MCV 85.5 MCH 27.7 MCHC 32.4 RDW Std Deviation 45.1 H RDW Coeff of Dania 14.6 Plt Count 241 MPV 10.3 Crossmatch See Detail Code Visit Addendum: Dr. Helms I personally examined the patient and reviewed the chart. I agree with the above. 33-year-old female presenting with acute on chronic kidney and iron deficiency anemia. She is from [facility] but is up here camping for the summer and plans to return there in the winter. She states that her primary care physician had a discussion with [facility] oncology here in [place] and had recommended a bone marrow biopsy that he has been unable to get insurance approval for as an outpatient. Oncology evaluated the patient and has recommended multiple different labs as well as Venofer infusions and a bone marrow biopsy to be done, hopefully today but probably on Wednesday. History history of PE and DVT and is therefore on Xarelto which was held. She also had an EGD done by general surgery who noted a fairly normal exam except for mild gastritis, biopsies are pending. No signs of bleeding on the EGD. Inpatient E&M: [id number] [facility] Hosp L2
[2019-01-07] MEDS: Bisacodyl 5 MG Tablet 15 MG PO (11:48)
[2019-01-07] MEDS: Mineral Oil 1 BOTTLE ENEMA 1 ML RECTAL (20:24)
[2019-01-07] MEDS: Zolpidem Tartrate 5 MG Tablet PO (21:30)
[2019-01-08] VITALS (10 sets, daily range): BP systolic 128–145; BP diastolic 68–92; PULSE 77–96; RESP 16–18; TEMP 36.7–37.3; O2SAT 96–98
[2019-01-08 07:12] LABS: Hematocrit 34.5 % (37-47); Mean Corp Hgb Conc 31.9 g/dL (32-36); Mean Corpuscular Hgb 27.4 pg (27.0-32.0); Mean Corpuscular Volume 85.8 fL (81-99); Platelet Count 271 K/mm3 (150-450); RBC Distribution Width CV 14.6 % (11.6-14.6); Red Blood Count 4.02 M/mm3 (4.2-5.4); White Blood Count 5.6 K/mm3 (4.4-11.0)
[2019-01-08] MEDS: Acetaminophen 325 MG Tablet 650 MG PO ×2 (07:22→17:02)
--- NOTE | 2019-01-08 08:38 | PN.SURG_ITS ---
Patient Problems: Active and Suspected Problems Anemia (Suspected) R/O MDS or refractory anemia Subjective: had partial bowel movement after enema yesterday - Physical Exam General: Alert, Oriented x3, Cooperative Lungs: Clear to auscultation, Normal air movement Cardiovascular: Regular rate, Regular Rhythm Abdomen: Bowel Sounds Present, Soft, Non Tender Vital Signs Temp Pulse Resp BP Pulse Ox 98.3 F 88 18 128/68 H 96 01/08/19 02:00 01/08/19 03:04 01/08/19 02:00 01/08/19 02:00 01/08/19 02:00 Oxygen Flow Rate (L/min) 2 Oxygen Delivery Method Room Air Weight: 73.2 kg Body Mass Index (BMI) 27.6 Intake and Output for Last 24 Hours 01/06/19 01/07/19 01/08/19 23:59 23:59 23:59 Intake Total 3315 / 3315 1699 / 1989 410 / 410 Output Total 4050 / 4050 Balance -735 / -735 1699 / 1989 410 / 410 Laboratory Tests Past 24 Hrs 01/08/19 06:00 WBC 5.6 RBC 4.02 L Hgb 11.0 L Hct 34.5 L MCV 85.8 MCH 27.4 MCHC 31.9 L RDW Std Deviation 44.0 H RDW Coeff of Dania 14.6 Plt Count 271 MPV 10.0 Medical Necessity - Tobacco Use Smoking Status: Current every day smoker Tobacco Use: Cigarettes Assessment/Plan All Active Problems Severe symtomatic anemia (Acute) shortness of breath, severe anemia I performed upper endoscopy. this demonstrated no abnormalities. the patient had positive stool for occult blood in September but currently has a negat miriam stool for occult blood. iron studies were obtained in September. . Iron studies does demonstrate a degree of iron deficiency anemia. Dr. Serrano was also consulted. He recommend bone marrow biopsy. additionally recommended holding Plavix and obtaining hypercoagulability panel in 2 weeks. Ok with patient using whatever bowel regime/enemas she needs
[2019-01-08] MEDS: Pramipexole Di-HCl 0.5 MG Tablet PO ×4 (08:52→23:01)
[2019-01-08] MEDS: 0.9% NaCl Peripheral Flush Adult/Peds IV ×2 (10:05→23:25)
[2019-01-08] MEDS: amLODIPine 5 MG Tablet PO (10:06)
[2019-01-08] MEDS: Citalopram 40 MG TABLET PO (10:06)
[2019-01-08] MEDS: Loratadine 10 MG Tablet PO (10:06)
[2019-01-08] MEDS: Atenolol 25 MG Tablet PO (10:07)
[2019-01-08] MEDS: cycloBENZAPRine HCl 10 MG Tablet PO (10:12)
--- NOTE | 2019-01-08 10:17 | PCM.PROGNOTE ---
<Carley Shields - Last Filed: 01/08/19 10:19> Patient Problems: Active and Suspected Problems Anemia (Suspected) R/O MDS or refractory anemia Subjective: Patient seen and examined. Feels improved. Hemoglobin up to 11 today. Plan for bone marrow biopsy in a.m. - Physical Exam General: Alert, Oriented x3, Cooperative HEENT: Atraumatic, PERRLA, EOMI, Normocephalic Neck: Supple, No JVD, Negative Carotid Bruits Lungs: Clear to auscultation, Normal air movement Cardiovascular: Regular rate, Regular Rhythm, Normal S1, Normal S2, No murmurs Abdomen: Bowel Sounds Present, Soft, Non Tender, Non-Distended Extremities: No clubbing, No cyanosis, No edema, Capillary Refill Less than 3 Seconds Skin: No rashes, No breakdown Musculoskeletal: No Tenderness to Palpation of Joints or Extremities Neurological: Cranial nerves II-XII grossly intact, Neuro grossly intact Psych/Mental Status: Normal Affect, Appropriate Vital Signs Temp Pulse Resp BP Pulse Ox 98.3 F 96 18 128/68 H 98 01/08/19 02:00 01/08/19 10:13 01/08/19 02:00 01/08/19 02:00 01/08/19 10:13 Oxygen Flow Rate (L/min) 2 Oxygen Delivery Method Room Air Weight: 161 lb 6.054 oz Body Mass Index (BMI) 27.6 Intake and Output for Last 24 Hours 01/06/19 01/07/19 01/08/19 23:59 23:59 23:59 Intake Total 3315 / 3315 1699 410 / 410 Output Total 4050 / 4050 Balance -735 / -735 1699 410 / 410 Laboratory Tests Past 24 Hrs 01/08/19 06:00 WBC 5.6 RBC 4.02 L Hgb 11.0 L Hct 34.5 L MCV 85.8 MCH 27.4 MCHC 31.9 L RDW Std Deviation 44.0 H RDW Coeff of Dania 14.6 Plt Count 271 MPV 10.0 Medical Necessity - Tobacco Use Smoking Status: Current every day smoker Tobacco Use: Cigarettes Assessment/Plan All Active Problems Severe symtomatic anemia (Acute) 1. Acute on chronic anemia, iron deficiency anemia-Dr. Gold consulted. EGD without evidence of bleeding. Stool for occult blood negative. Patient has history of gastric ulcer. She reports she follows with hematology in [place] where she resides during the winter. She reports hematology has discussed bone marrow examination. Dr. Serrano consulted. Hemoglobin 5.9 on admission. Patient has received 3 units PRBC. Hemoglobin stable, trend CBC. IV iron x5 bags. IV PPI. Patient has been on oral iron supplementation however she is also on high-dose PPI. Of note, she also has a history of multiple bowel surgeries with multiple resections and history of colostomy status post reversal. This may contribute to iron absorption. Dr. Serrano recommending bone marrow biopsy which was completed Wednesday. Recommends holding Xarelto for 2 weeks and checking hypercoagulable panel. Plan for discharge Wednesday following bone marrow biopsy and patient can follow-up with Dr. Serrano as outpatient for results. 2. 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 Dr. Serrano consulted as noted above. 3. GERD-patient reports she has a history of severe acid reflux. She is on both ranitidine 150 mg daily and Protonix 40 mg twice daily. 4. Chronic pain syndrome-follows with pain management in [place] however she reports her insurance has not approved her to see pain management while she is in [place]. PRN pain regimen. She reports she has been taking extra strength Tylenol and NSAIDs at home. Has not been taking narcotics. Patient was receiving significant amount of narcotics in [place] including methadone, Percocet and morphine. She states she quit cold turkey and denies opioid withdrawal symptoms. Suspect patient may be diverting her prescriptions in [place]. Will attempt to contact [facility]/diversion. 5. Hypertension-stable, continue home amlodipine, atenolol regimen. 6. Depression-continue home citalopram regimen. 7. Tobacco dependence-encouraged smoking cessation. DVT prophylaxis-SCDs, Xarelto on hold given #1. This patient was seen by SHARA Leary under the supervision of Dr. Helms. <Shai Helms F - Last Filed: 01/08/19 10:23> - Physical Exam Vital Signs Temp Pulse Resp BP Pulse Ox 98.3 F 96 18 128/68 H 98 01/08/19 02:00 01/08/19 10:13 01/08/19 02:00 01/08/19 02:00 01/08/19 10:13 Oxygen Flow Rate (L/min) 2 Oxygen Delivery Method Room Air Weight: 161 lb 6.054 oz Body Mass Index (BMI) 27.6 Intake and Output for Last 24 Hours 01/06/19 01/07/19 01/08/19 23:59 23:59 23:59 Intake Total 3315 / 3315 1699 410 / 410 Output Total 4050 / 4050 Balance -735 / -735 1699 410 / 410 Laboratory Tests Past 24 Hrs 01/08/19 06:00 WBC 5.6 RBC 4.02 L Hgb 11.0 L Hct 34.5 L MCV 85.8 MCH 27.4 MCHC 31.9 L RDW Std Deviation 44.0 H RDW Coeff of Dania 14.6 Plt Count 271 MPV 10.0 Code Visit Addendum: Dr. Helms I personally examined the patient and reviewed the chart. I agree with the above. 33-year-old female presenting with acute on chronic kidney and iron deficiency anemia. She is from [facility] but is up here camping for the summer and plans to return there in the winter. She states that her primary care physician had a discussion with [facility] oncology here in [place] and had recommended a bone marrow biopsy that he has been unable to get insurance approval for as an outpatient. Oncology evaluated the patient and has recommended multiple different labs as well as Venofer infusions and a bone marrow biopsy to be done on Wednesday. History history of PE and DVT and is therefore on Xarelto which was held. She also had an EGD done by general surgery who noted a fairly normal exam except for mild gastritis, biopsies are pending. No signs of bleeding on the EGD. Inpatient E&M: [id number] Subs Hosp L2
[2019-01-08] MEDS: Zolpidem Tartrate 5 MG Tablet PO (22:59)
[2019-01-08] MEDS: Bisacodyl 5 MG Tablet 15 MG PO (23:01)
[2019-01-08] MEDS: oxyCODONE 5 MG Tablet 10 MG PO (23:28)
[2019-01-09] VITALS (10 sets, daily range): BP systolic 137–152; BP diastolic 76–89; PULSE 80–109; RESP 18; TEMP 36.7–36.9; O2SAT 93–97
[2019-01-09] MEDS: cycloBENZAPRine HCl 10 MG Tablet PO (03:29)
[2019-01-09 05:39] LABS: Hematocrit 35.5 % (37-47); Hemoglobin 11.3 g/dL (12.0-15.0); Mean Corp Hgb Conc 31.8 g/dL (32-36); Mean Corpuscular Hgb 27.4 pg (27.0-32.0); Mean Platelet Vol. 9.9 fl (6.2-12.0); Platelet Count 260 K/mm3 (150-450); RBC Distribution Width CV 15.3 % (11.6-14.6); RBC Distribution Width SD 43.9 fl (35.1-43.9); Red Blood Count 4.13 M/mm3 (4.2-5.4); White Blood Count 4.8 K/mm3 (4.4-11.0)
[2019-01-09 05:45] LABS: International Normalized Ratio 1.1; Prothrombin Time (Protime)PT. 13.8 SECONDS (11.7-14.9)
[2019-01-09] MEDS: Loratadine 10 MG Tablet PO (08:46)
[2019-01-09] MEDS: Citalopram 40 MG TABLET PO (08:47)
[2019-01-09] MEDS: amLODIPine 5 MG Tablet PO (08:47)
[2019-01-09] MEDS: Pramipexole Di-HCl 0.5 MG Tablet PO ×4 (08:47→22:27)
[2019-01-09] MEDS: Atenolol 25 MG Tablet PO (08:47)
[2019-01-09] MEDS: Acetaminophen 325 MG Tablet 650 MG PO ×2 (08:50→15:03)
--- NOTE | 2019-01-09 09:42 | CASEMGMT ---
PENNIE faxed updates to [employer]. Await response from [employer]. Rand LICONA MSW
--- NOTE | 2019-01-09 13:19 | PN_ITS ---
<Carley Shields - Last Filed: 01/09/19 13:28> Patient Problems: Active and Suspected Problems Anemia (Suspected) R/O MDS or refractory anemia Subjective: Patient seen and examined. Hemoglobin remained stable. Denies current complaints. Plan for bone marrow biopsy in a.m. as radiology not able to complete today. - Physical Exam General: Alert, Oriented x3, Cooperative HEENT: Atraumatic, PERRLA, EOMI, Normocephalic Neck: Supple, No JVD, Negative Carotid Bruits Lungs: Clear to auscultation, Normal air movement Cardiovascular: Regular rate, Regular Rhythm, Normal S1, Normal S2, No murmurs Abdomen: Bowel Sounds Present, Soft, Non Tender, Non-Distended Extremities: No clubbing, No cyanosis, No edema, Capillary Refill Less than 3 Seconds Skin: No rashes, No breakdown Musculoskeletal: No Tenderness to Palpation of Joints or Extremities Neurological: Cranial nerves II-XII grossly intact, Neuro grossly intact Psych/Mental Status: Normal Affect, Appropriate Vital Signs Temp Pulse Resp BP Pulse Ox 98.1 F 109 H 18 149/81 H 96 01/09/19 08:43 01/09/19 09:01 01/09/19 08:43 01/09/19 08:43 01/09/19 08:43 Oxygen Flow Rate (L/min) 2 Oxygen Delivery Method Room Air Weight: 161 lb 6.054 oz Body Mass Index (BMI) 27.6 Intake and Output for Last 24 Hours 01/07/19 01/08/19 01/09/19 23:59 23:59 23:59 Intake Total 1699 2377 / 2377 1049 / 1049 Balance 1699 / 237 1049 / 1049 Laboratory Tests Past 24 Hrs 01/09/19 01/09/19 05:20 05:20 WBC 4.8 RBC 4.13 L Hgb 11.3 L Hct 35.5 L MCV 86.0 MCH 27.4 MCHC 31.8 L RDW Std Deviation 43.9 RDW Coeff of Dania 15.3 H Plt Count 260 MPV 9.9 PT 13.8 INR 1.1 Medical Necessity - Tobacco Use Smoking Status: Current every day smoker Tobacco Use: Cigarettes Assessment/Plan All Active Problems Severe symtomatic anemia (Acute) 1. Acute on chronic anemia, iron deficiency anemia-Dr. Gold consulted. EGD without evidence of bleeding. Stool for occult blood negative. Patient has history of gastric ulcer. She reports she follows with hematology in [place] where she resides during the winter. She reports hematology has discussed bone marrow examination. Dr. Serrano consulted. Hemoglobin 5.9 on admission. Patient has received 3 units PRBC. Hemoglobin stable, trend CBC. IV iron x5 bags. Switch to oral PPI. Patient has been on oral iron supplementation however she is also on high-dose PPI. Of note, she also has a history of multiple bowel surgeries with multiple resections and history of colostomy status post reversal. This may contribute to iron absorption. Dr. Serrano recommending bone marrow biopsy which was completed tomorrow. Recommends holding Xarelto for 2 weeks and checking hypercoagulable panel. Plan for discharge following bone marrow biopsy and patient can follow-up with Dr. Serrano as outpatient for results. 2. 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 Dr. Serrano consulted as noted above. 3. GERD-patient reports she has a history of severe acid reflux. She is on both ranitidine 150 mg daily and Protonix 40 mg twice daily. 4. Chronic pain syndrome-follows with pain management in [place] however she reports her insurance has not approved her to see pain management while she is in [place]. PRN pain regimen. She reports she has been taking extra strength Tylenol and NSAIDs at home. Has not been taking narcotics. Patient was receiving significant amount of narcotics in [place] including methadone, Percocet and morphine. She states she quit cold turkey and denies opioid withdrawal symptoms. Suspect patient may be diverting her prescriptions in [place]. 5. Hypertension-stable, continue home amlodipine, atenolol regimen. 6. Depression-continue home citalopram regimen. 7. Tobacco dependence-encouraged smoking cessation. DVT prophylaxis-SCDs, Xarelto on hold given #1. This patient was seen by SHARA Leary under the supervision of Dr. Helms. <Shai Helms F - Last Filed: 01/09/19 13:35> - Physical Exam Vital Signs Temp Pulse Resp BP Pulse Ox 98.1 F 109 H 18 149/81 H 96 01/09/19 08:43 01/09/19 09:01 01/09/19 08:43 01/09/19 08:43 01/09/19 08:43 Oxygen Flow Rate (L/min) 2 Oxygen Delivery Method Room Air Weight: 161 lb 6.054 oz Body Mass Index (BMI) 27.6 Intake and Output for Last 24 Hours 01/07/19 01/08/19 01/09/19 23:59 23:59 23:59 Intake Total 1699 2377 / 2377 1049 / 1049 Balance 1699 1049 / 1049 Laboratory Tests Past 24 Hrs 01/09/19 01/09/19 05:20 05:20 WBC 4.8 RBC 4.13 L Hgb 11.3 L Hct 35.5 L MCV 86.0 MCH 27.4 MCHC 31.8 L RDW Std Deviation 43.9 RDW Coeff of Dania 15.3 H Plt Count 260 MPV 9.9 PT 13.8 INR 1.1 Code Visit Addendum: Dr. Helms I personally examined the patient and reviewed the chart. I agree with the above. 33-year-old female presenting with acute on chronic kidney and iron deficiency anemia. She is from [facility] but is up here camping for the summer and plans to return there in the winter. She states that her primary care physician had a discussion with [facility] oncology here in [place] and had recommended a bone marrow biopsy that he has been unable to get insu eveline approval for as an outpatient. Oncology evaluated the patient and has recommended multiple different labs as well as Venofer infusions and a bone marrow biopsy to be done on Wednesday and then she can be discharged home. History of PE and DVT and is therefore on Xarelto which was held. She also had an EGD done by general surgery who noted a fairly normal exam except for mild gastritis, biopsies are pending. No signs of bleeding on the EGD. Inpatient E&M: 63250 Subs Hosp L2
[2019-01-09] MEDS: oxyCODONE 5 MG Tablet 10 MG PO (16:32)
[2019-01-09] MEDS: Ferrous Sulfate 325 MG Tablet PO (16:33)
--- NOTE | 2019-01-09 20:10 | NURSING ---
VS late d/t receiving pt from PACU
[2019-01-09] MEDS: Zolpidem Tartrate 5 MG Tablet PO (22:27)
[2019-01-09] MEDS: Bisacodyl 5 MG Tablet 15 MG PO (22:27)
[2019-01-09] MEDS: Pantoprazole Sodium 40 MG Tablet PO (22:27)
[2019-01-10] VITALS (18 sets, daily range): BP systolic 101–176; BP diastolic 69–110; PULSE 86–113; RESP 14–18; TEMP 36.7–37.4; O2SAT 95–98
--- NOTE | 2019-01-10 | IMM_PTH ---
PATIENT: CANDICE CASTELLON LOC: PCU U#:[id number] AGE/SX: 73/F ROOM: [facility] RE01/04/[address]: Dr. Shai Helms MD : 1945 BED: 1 DIS: 01/10/2019 SPEC #: [id number] RECD: 01/10/19 14:13 STATUS: THANIA REQ #: [id number] ANGELA: 01/10/19 00:[address]: Tin Serrano DEPT: IMMUNOHISTOCHEMISTRY RECD BY: Marilyn Powers ENTERED: 01/11/19 14:15 SP TYPE: IMMUNO OTHR DR: MD Dr. Shai Ramos MD Dr. Richard Guttman, MD Tissues: A - Bone marrow of iliac crest B - Bone marrow of iliac crest Procedures: CD20 (add) CD45 (add) CD5 (add) CD79A (add) CD3 (initial) PHYSICIAN & [place] [id number] SPECIMEN INFORMATION: Tissue Source: A - Bone marrow core, B - Bone marrow clot Clinical Info: Anemia; GI bleeding Specimen Number: [id number] A & B CPT code: 47973 x2, 57601 x8 METHODOLOGY: Deparaffinized sections of prefer/formalin-fixed tissue or PAP/DQ stained slides are incubated with monoclonal/polyclonal antibodies/oligonucleotide probes. Localization is made via biotin free immunoperoxidase method. Appropriate controls are performed and reacted as expected. Results on target cell population are indicated in the following table: RESULTS: ANTIBODY / CLONE RESULT Block A CD3 (PS1) positive CD5 (SP10) positive CD20 (L26) positive CD79a (11E3) positive CD45 (RP2/18) positive Block B CD3 (PS1) positive CD5 (SP10) positive CD20 (L26) positive CD79a (11E3) positive CD45 (RP2/18) positive These tests were developed and their performance characteristics determined by [facility]. They may not have been cleared or approved by the U.S. Food and Drug Administration. The FDA has determined that such clearance or approval is not necessary. INTERPRETATION: A. Bone marrow core: Interstitial infiltrates of small lymphocytes are noted, polytypic in nature, favor benign. B. Bone marrow clot: Interstitial infiltrates of small lymphocytes and minute lymphoid aggregates are noted, polytypic in nature, favor benign. MAMIE:guerda 01/12/19
--- NOTE | 2019-01-10 | BMB_PTH ---
PATIENT: CANDICE CASTELLON LOC: [facility] U#:[id number] AGE/SX: 73/F ROOM: [facility] RE01/04/[address]: Dr. Shai Helms MD : 1945 BED: 1 DIS: 01/10/2019 SPEC #: [id number] RECD: 01/10/19 11:26 STATUS: THANIA REQ #: [id number] ANGELA: 01/10/19 00:[address]: Tin Serrano DEPT: BONE MARROW RECD BY: Gwyn Batres ENTERED: 01/10/19 11:27 SP TYPE: BMB OTHR DR: MD Dr. Tin Ramos MD Dr. Nicholas F Kotsonis, MD Dr. Richard Guttman, MD Tissues: A - Bone marrow, NOS B - Bone marrow, NOS C - Bone marrow, NOS Procedures: Decalcification bone/plaque Bone Marrow Aspiration Bone Marrow Core Biopsy Iron Stain Bone Marrow Comments: @ Ordering doctor for DEC edited from to @ by LOGAN at 01/10/19 1140 @ Ordering doctor for BMA edited from to @ by LOGAN at 01/10/19 1140 @ Ordering doctor for BMCB edited from to @ by LOGAN at 01/10/19 1140 @ Ordering doctor for FEBM edited from to @ by LOGAN at 01/10/19 1140 @ Submitting doctor edited from to DR.LLUN Ricardo by LOGAN at 01/10/19 1140 HEADER OPERATION: Bone marrow aspiration and biopsy PRE-OP DIAGNOSIS: Anemia, GI bleeding TISSUE SUBMITTED: A - Core, B - Clot, C - Smears, and send outs (flow, cytogenetics and MDS FISH) BONE MARROW DIAGNOSIS Bone marrow core, clot and aspirate smears: Normocellular marrow with trilineage hematopoiesis. Negative for granuloma, lymphoma or malignancy. Iron - 3+, atypical or ringed sideroblasts are not seen. Flow cytometry study from [employer] shows a myeloblast population showing rare phenotypic aberrancy, representing 1% of the non erythroid cells and no other significant immunophenotypic abnormality. Complete report is viewable in patient's EMR. Cytogenetic and FISH studies are pending at this time. SJ:guerda 01/12/19 COMMENT Immunohistochemistry ([id number]) shows interstitial infiltrates of small lymphocytes and a few minute lymphoid aggregates, polytypic in nature, favor benign. Correlation with clinical findings and appropriate follow up are necessary. BONE MARROW STUDY Slides are reviewed. CBC DATE: 01/10/19 WBC 5.2; RBC 4.44; HGB 12.3; HCT 38.3; MCV 86.3; RDW 15.2; PLTS 280,000 SEGS 50.5%; LYMPHS 32.1%; MONOS 10.2%; EOS 5.8%; BASOS 1.2% PERIPHERAL SMEAR: Submitted. RBC: Normocytic and normochromic. WBC: Unremarkable. The WBC count is compatible to as reported above. PLTS: Adequate. BONE MARROW ASPIRATE DIFFERENTIAL: 200 cell count. Blasts % (normal 0-2): 0 Promyelocytes % (normal 1-5): 0 Myelocytes and metamyelocytes % (normal 17-41): 13 Bands and Segs % (normal 15-32): 45 Eos % (normal 1-6): 4 Basos % (normal 0-1): 0 Monocytes % (normal 0-4): 1 Erythroid Precursors % (normal 17-35): 22 Lymphocytes % (normal 7-13): 15 Plasma Cells % (normal 0-2): 0 ASPIRATE FINDINGS: Site: Not specified Paucispicular, Cellular M/E ratio: 2.8 (Normal 1.5-4.0) Megakaryocytes: Present and normal morphology. Erythropoiesis: Normoblastic. Granulopoiesis: Progressive and unremarkable. Comment: Significant dysplastic changes are not seen. Mild increase of small lymphocytes are noted. CORE BIOPSY FINDINGS: Site: Not specified Adequacy: Adequate Cellularity: 50% M/E ratio: Within normal limits. Megakaryocytes: Present and adequate in number. Bony trabeculae: Unremarkable. Granulomas: Absent. Lymphoid aggregate: Absent. Atypical infiltrate: Absent. Comment: Immunohistochemistry ([id number]) shows interstitial infiltrates of small lymphocytes, polytypic in nature, favor benign. ASPIRATE CLOT FINDINGS: Site: Not specified Marrow particles: Numerous Cellularity: 40% M/E ratio: Within normal limits. Megakaryocytes: Present and adequate in number. Granulomas: Absent. Lymphoid aggregates: Minute lymphoid aggregates are noted. Atypical infiltrates: Absent. Comment: Immunohistochemistry ([id number]) shows interstitial infiltrates of small lymphocytes and minute lymphoid aggregates, polytypic in nature, favor benign. SPECIAL STAINS WITH MATCHED CONTROLS: Iron: 3+, atypical or ringed sideroblasts are not seen. Reticulin: No significant increase of reticulin fibers is noted. PAS: Highlights myeloid cells and megakaryocytes. BONE MARROW GROSS A - Received is a container labeled with the patient's name and designated bone marrow. The specimen consists of multiple fragments of blood clot mixed with fragments of bone measuring in aggregate 1.2 x 0.3 x 0.1 cm. The specimen is totally submitted in one cassette after decalcification. B - Received labeled with the patient's name and designated bone marrow is a specimen that consists of approximately 5 cc of bloody fluid that on filtration yields multiple minute fragments of blood clots measuring in aggregate 1.5 x 0.5 x 0.1 cm. The specimen is totally submitted in one cassette. C - Also received are 18 unstained and 1 peripheral stained slides. The unstained slides are submitted for appropriate staining. Also received are two green top tubes which are sent to our reference lab for flow, cytogenetics and MDS FISH. / SJ:rg 01/10/19 TC:5 CPT: 32257, 25490, 20057 x2, 50022 x3, 39563 ADDENDUM ADDENDUM ADDENDUM ADDENDUM ADDENDUM ADDENDUM ADDENDUM 01/20/2019 14:43 ADDENDUM 01/26/2019 08:55 ADDENDUM 01/20/2019 14:43 ADDENDUM 01/20/2019 14:43 ADDENDUM 01/20/2019 14:43 ADDENDUM 01/20/2019 14:43 REPORT FROM [facility] MDS FISH PANEL FISH RESULT: Normal MDS Panel Please see complete report in e-chart or EMR for further details CYTOGENETICS REPORT FROM [facility] CYTOGENETIC RESULT: 46,XX[20] INTERPRETATION: Normal female karyotype was observed in twenty metaphases analyzed. Please see complete report in e-chart or EMR for further details
[2019-01-10] MEDS: Acetaminophen 325 MG Tablet 650 MG PO ×2 (02:22→11:50)
[2019-01-10 06:03] LABS: Hematocrit 38.3 % (37-47); Hemoglobin 12.3 g/dL (12.0-15.0); Mean Corp Hgb Conc 32.1 g/dL (32-36); Mean Corpuscular Hgb 27.7 pg (27.0-32.0); Mean Corpuscular Volume 86.3 fL (81-99); Mean Platelet Vol. 9.4 fl (6.2-12.0); Platelet Count 280 K/mm3 (150-450); RBC Distribution Width CV 15.2 % (11.6-14.6); RBC Distribution Width SD 44.1 fl (35.1-43.9); Red Blood Count 4.44 M/mm3 (4.2-5.4); White Blood Count 5.2 K/mm3 (4.4-11.0)
--- NOTE | 2019-01-10 06:33 | PCM.PN.SRG ---
Patient Problems: Active and Suspected Problems Anemia (Suspected) R/O MDS or refractory anemia Subjective: missed note 01/09 - multiple bowel movements, abdomen less distended, no signs of blood in stools - Physical Exam General: Alert, Oriented x3, Cooperative Abdomen: Bowel Sounds Present, Soft, Non Tender Vital Signs Temp Pulse Resp BP Pulse Ox 98.1 F 96 16 141/83 H 98 01/10/19 02:10 01/10/19 02:59 01/10/19 02:10 01/10/19 02:10 01/10/19 02:10 Oxygen Flow Rate (L/min) 2 Oxygen Delivery Method Room Air Weight: 73.2 kg Body Mass Index (BMI) 27.6 Intake and Output for Last 24 Hours 01/08/19 01/09/19 01/10/19 23:59 23:59 23:59 Intake Total 2377 / 2377 2649 / 2649 Balance 2377 / 2377 2649 / 2649 Laboratory Tests Past 24 Hrs 01/10/19 05:36 WBC 5.2 RBC 4.44 Hgb 12.3 Hct 38.3 MCV 86.3 MCH 27.7 MCHC 32.1 RDW Std Deviation 44.1 H RDW Coeff of Dania 15.2 H Plt Count 280 MPV 9.4 Medical Necessity - Tobacco Use Smoking Status: Current every day smoker Tobacco Use: Cigarettes Assessment/Plan All Active Problems Severe symtomatic anemia (Acute) shortness of breath, severe anemia I performed upper endoscopy. this demonstrated no abnormalities. Shortness of breath improved following transfusion the patient had positive stool for occult blood in September but currently has a negative stool for occult blood. iron studies were obtained in September. . Iron studies does demonstrate a degree of iron deficiency anemia. Hgb improved after transfusion Dr. Serrano was also consulted. He recommend bone marrow biopsy. additionally recommended holding Plavix and obtaining hypercoagulability panel in 2 weeks. Ok with patient using whatever bowel regime/enemas she needs
--- NOTE | 2019-01-10 06:35 | PCM.PN.SRG ---
Patient Problems: Active and Suspected Problems Anemia (Suspected) R/O MDS or refractory anemia Subjective: no complaints - Physical Exam Vital Signs Temp Pulse Resp BP Pulse Ox 98.1 F 96 16 141/83 H 98 01/10/19 02:10 01/10/19 02:59 01/10/19 02:10 01/10/19 02:10 01/10/19 02:10 Oxygen Flow Rate (L/min) 2 Oxygen Delivery Method Room Air Weight: 73.2 kg Body Mass Index (BMI) 27.6 Intake and Output for Last 24 Hours 01/08/19 01/09/19 01/10/19 23:59 23:59 23:59 Intake Total 2377 / 2377 2649 / 2649 Balance 2377 / 2377 2649 / 2649 Laboratory Tests Past 24 Hrs 01/10/19 05:36 WBC 5.2 RBC 4.44 Hgb 12.3 Hct 38.3 MCV 86.3 MCH 27.7 MCHC 32.1 RDW Std Deviation 44.1 H RDW Coeff of Dania 15.2 H Plt Count 280 MPV 9.4 Medical Necessity - Tobacco Use Smoking Status: Current every day smoker Tobacco Use: Cigarettes Assessment/Plan All Active Problems Severe symtomatic anemia (Acute) shortness of breath, severe anemia I performed upper endoscopy. this demonstrated no abnormalities. Shortness of breath improved following transfusion the patient had positive stool for occult blood in September but currently has a negative stool for occult blood. iron studies were obtained in September. . Iron studies does demonstrate a degree of iron deficiency anemia. Hgb improved after transfusion Dr. Serrano was also consulted. He recommend bone marrow biopsy. Bone marrow biopsy scheduled for today. Ok with patient using whatever bowel regime/enemas she needs
--- NOTE | 2019-01-10 08:25 | PCM.DC ---
- Discharge Diagnoses Current Active Problems: Current Active and Chronic Problems Anemia You will use the following diet at home:: No restrictions Discharge Activity: Return to Normal Activity Call your doctor if you observe: Shortness of breath, Dizziness, Fainting spells, Chest pain Additional Instructions: Hold Xarelto until 01/22/19. You will need to follow up with Dr. Serrano in 1 week for additional labwork and to go over bone [facility] results. Allergies/Adverse Reactions: Allergies celecoxib [From Celebrex] Allergy (Verified 01/04/19 15:55) Anaphylaxis paroxetine [From Paxil] Allergy (Verified 01/04/19 15:55) Other heart arrhythmia pregabalin [From Lyrica] Allergy (Verified 01/04/19 15:55) Nausea Dhzrzpm-Iue-Ytb Reductase Inhibitor Allergy (Verified 01/04/19 15:55) Chest tightness Sulfa (Sulfonamide Antibiotics) Allergy (Verified 01/04/19 15:55) Anaphylaxis zolmitriptan [From Zomig] Allergy (Verified 01/04/19 15:55) Anaphylaxis zomax Allergy (Severe, Uncoded 01/04/19 15:55) Anaphylaxis Medications to take at Discharge Amlodipine [Norvasc] 5 mg PO DAILY 10/16/18 Atenolol [Tenormin (beta jese)] 25 mg PO DAILY 10/16/18 Citalopram [Celexa] 40 mg PO DAILY 10/16/18 Diazepam [Valium] 2 mg PO TID PRN PRN 10/16/18 Prochlorperazine Maleate [Compazine] 5 mg PO Q4H PRN PRN 10/16/18 cycloBENZAPRine HCl [Flexeril] 10 mg PO BID PRN PRN 10/16/18 Cetirizine HCl 10 mg PO QHS 01/04/19 Pantoprazole Sodium 40 mg PO BID 01/04/19 Ranitidine HCl 150 mg PO DAILY 01/04/19 Zolpidem Tartrate 10 mg PO QHS 01/04/19 Bisacodyl [Dulcolax] 15 mg PO QHS 01/08/19 Acetaminophen [Tylenol Tablet] 650 mg PO Q6H PRN PRN tab 01/10/19 Ferrous Sulfate 325 mg PO BID #120 tab 01/10/19 Pramipexole Di-HCl [Mirapex] 0.5 mg PO 4X/DAYCM #120 tab 01/10/19 Rivaroxaban [Xarelto] 20 mg PO DAILY #0 01/10/19 The following prescriptions were given: Ferrous Sulfate 325 mg PO BID #120 tab Transmission Status: Pending to [id number] Pramipexole Di-HCl [Mirapex] 0.5 mg PO 4X/DAYCM #120 tab Transmission Status: Pending to [id number] Primary Care Physician: [facility] Doctor,Out of [NON-STAFF] - Please follow up with your Primary Care Physician in: 1 Week Test Results: Test results from this visit will be discussed in further detail at your follow-up appointment, if applicable. Please Follow Up With: Tin Serrano MD When: 1 Week Proposed Discharge Date: 01/10/19
--- NOTE | 2019-01-10 08:29 | PCM.DC.SUM ---
<Carley Shields - Last Filed: 01/10/19 08:39> Discharge Date and Diagnosis Date of Admission: 01/04/19 Date of Discharge: 01/10/19 - Primary Discharge Diagnosis Active and Suspected Problems 1. Acute on chronic anemia, iron deficiency anemia 2. History of recurrent PE/DVT 3. GERD 4. Chronic pain syndrome 5. Hypertension 6. Depression 7. Tobacco dependence - Secondary Discharge Diagnosis Chronic Problems Hypertension (Chronic) Pulmonary embolism (Chronic) Hiatus hernia with GERD (Chronic) Chronic pain syndrome (Chronic) Chronic costochondritis (Chronic) Nicotine abuse (Chronic) Hospital Course and Treatment Imaging Results: Diagnostic Data Chest X-Ray 01/04/19 16:36 IMPRESSION: No acute thoracic pathology. Electronically Signed: Bandar Bailey, at 16:53 EDT Tel , Service support , Dr. Gold- General Surgery Dr. Serrano- oncology Operations: None Procedures: EGD, - - Bone marrow biopsy Summary of Care Provided: The patient is a 73 year old F admitted 01/04/2019 due to shortness of breath. 1. Acute on chronic anemia, iron deficiency anemia-Dr. Gold consulted. EGD without evidence of bleeding. Stool for occult blood negative. Patient has history of gastric ulcer. She reports she follows with hematology in [place] where she resides during the winter. She reports hematology has discussed bone marrow examination. Dr. Serrano consulted. Hemoglobin 5.9 on admission. Patient has received 3 units PRBC. Hemoglobin stable, 12.3 at discharge. Patient received IV iron x5 bags. Patient has been on oral iron supplementation however she is also on high-dose PPI. Of note, she also has a history of multiple bowel surgeries with multiple resections and history of colostomy status post reversal. Dr. Serrano recommending bone marrow biopsy which was completed. Recommends holding Xarelto for 2 weeks and checking hypercoagulable panel. Patient can resume Xarelto at 01/22/2019. Patient will follow-up with Dr. Serrano in 1 week for bone marrow biopsy results and also repeat CBC, iron study, vitamin B12, folic acid, methylmalonic acid and reticulocyte count. Follow-up with primary care provider and hematology upon returning to [place] as well. 2. 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 Dr. Serrano consulted as noted above. 3. GERD-patient reports she has a history of severe acid reflux. She is on both ranitidine 150 mg daily and Protonix 40 mg twice daily. 4. Chronic pain syndrome-follows with pain management in [place] however she reports her insurance has not approved her to see pain management while she is in [place]. PRN pain regimen. She reports she has been taking extra strength Tylenol and NSAIDs at home. Has not been taking narcotics. Patient was receiving significant amount of narcotics in [place] including methadone, Percocet and morphine. She states she quit cold turkey and denies opioid withdrawal symptoms. Suspect patient may be diverting her prescriptions in [place]. Requesting narcotics at discharge, she was told she will not be prescribed any narcotic medication at discharge. 5. Hypertension-stable, continue home amlodipine, atenolol regimen. 6. Depression-continue home citalopram regimen. 7. Tobacco dependence-encouraged smoking cessation. General: Alert, Oriented x3, Cooperative HEENT: Atraumatic, PERRLA, EOMI, Normocephalic Neck: Supple, No JVD, Negative Carotid Bruits Lungs: Clear to auscultation, Normal air movement Cardiovascular: Regular rate, Regular Rhythm, Normal S1, Normal S2, No murmurs Abdomen: Bowel Sounds Present, Soft, Non Tender, Non-Distended Extremities: No clubbing, No cyanosis, No edema, Capillary Refill Less than 3 Seconds Skin: No rashes, No breakdown Musculoskeletal: No Tenderness to Palpation of Joints or Extremities Neurological: Cranial nerves II-XII grossly intact, Neuro grossly intact Psych/Mental Status: Normal Affect, Appropriate Patient seen and examined prior to discharge. Physical assessment as noted above. Patient is stable for discharge with follow up recommendations as noted above. This patient was seen by SHARA Leary under the supervision of Dr. Helms. - Physical Exam Vital Signs Temp Pulse Resp BP Pulse Ox 98.1 F 88 16 141/83 H 98 01/10/19 02:10 01/10/19 07:00 01/10/19 02:10 01/10/19 02:10 01/10/19 02:10 Oxygen Flow Rate (L/min) 2 Oxygen Delivery Method Room Air Weight: 161 lb 6.054 oz Body Mass Index (BMI) 27.6 Intake and Output for Last 24 Hours 01/08/19 01/09/19 01/10/19 23:59 23:59 23:59 Intake Total 2377 / 2377 2649 / 2649 Balance 2377 / 2377 2649 / 2649 Laboratory Tests Past 24 Hrs 01/10/19 05:36 WBC 5.2 RBC 4.44 Hgb 12.3 Hct 38.3 MCV 86.3 MCH 27.7 MCHC 32.1 RDW Std Deviation 44.1 H RDW Coeff of Dania 15.2 H Plt Count 280 MPV 9.4 Discharge Diet: No Restrictions Discharge Activity: Return to Normal Activity Call your doctor if you observe: Shortness of breath, Dizziness, Fainting spells, Chest pain Home Medications: Medications to take at Discharge Amlodipine [Norvasc] 5 mg PO DAILY 10/16/18 Atenolol [Tenormin (beta jese)] 25 mg PO DAILY 10/16/18 Citalopram [Celexa] 40 mg PO DAILY 10/16/18 Diazepam [Valium] 2 mg PO TID PRN PRN 10/16/18 Prochlorperazine Maleate [Compazine] 5 mg PO Q4H PRN PRN 10/16/18 cycloBENZAPRine HCl [Flexeril] 10 mg PO BID PRN PRN 10/16/18 Cetirizine HCl 10 mg PO QHS 01/04/19 Pantoprazole Sodium 40 mg PO BID 01/04/19 Ranitidine HCl 150 mg PO DAILY 01/04/19 Zolpidem Tartrate 10 mg PO QHS 01/04/19 Bisacodyl [Dulcolax] 15 mg PO QHS 01/08/19 Acetaminophen [Tylenol Tablet] 650 mg PO Q6H PRN PRN tab 01/10/19 Ferrous Sulfate 325 mg PO BID #120 tab 01/10/19 Pramipexole Di-HCl [Mirapex] 0.5 mg PO 4X/DAYCM #120 tab 01/10/19 Rivaroxaban [Xarelto] 20 mg PO DAILY #0 01/10/19 Following Prescrptions Were Given to Patient: Ferrous Sulfate 325 mg PO BID #120 tab Transmission Status: Received by [facility]/pharmacy #[id number] Pramipexole Di-HCl [Mirapex] 0.5 mg PO 4X/DAYCM #120 tab Transmission Status: Received by [facility]/pharmacy #[id number] Primary Care Physician: Omar Doctor,Out of [NON-STAFF] - Please follow up with your Primary Care Physician in: 1 Week Please Follow Up With: Tin Serrano MD When: 1 Week Disposition: Home Minutes spent on discharge:: 35 Patient Condition:: Stable Medical Necessity - Tobacco Use Smoking Status: Current every day smoker Tobacco Use: Cigarettes Meaningful Use Info Meaningful Use Diagnoses (Choose all that apply): None applicable <Shai Helms F - Last Filed: 01/10/19 16:29> Discharge Date and Diagnosis - Secondary Discharge Diagnosis Chronic Problems Hypertension (Chronic) Pulmonary embolism (Chronic) Hiatus hernia with GERD (Chronic) Chronic pain syndrome (Chronic) Chronic costochondritis (Chronic) Nicotine abuse (Chronic) Hospital Course and Treatment Imaging Results: 01/10/19 09:00 Biopsy/Inj or Needle Placement [CT] Urgent Summary of Care Provided: The patient is a 73 year old F [] - Physical Exam Vital Signs Temp Pulse Resp BP Pulse Ox 98.9 F 86 16 124/75 H 97 01/10/19 13:40 01/10/19 13:40 01/10/19 13:40 01/10/19 13:40 01/10/19 13:40 Oxygen Flow Rate (L/min) 2 Oxygen Delivery Method [8] Room Air Oxygen Delivery Method [7] Room Air Oxygen Delivery Method [6] Room Air Oxygen Delivery Method [5] Room Air Oxygen Delivery Method [4] Room Air Oxygen Delivery Method [3] Room Air Oxygen Delivery Method [2] Room Air Oxygen Delivery Method [1 ( Room Air Initial Baseline)] Oxygen Delivery Method Room Air Weight: 161 lb 6.054 oz Body Mass Index (BMI) 27.6 Intake and Output for Last 24 Hours 01/08/19 01/09/19 01/10/19 23:59 23:59 23:59 Intake Total 1867 / 2377 2649 / 2649 350 / 350 Balance 2377 / 2377 2649 / 2649 350 / 350 Laboratory Tests Past 24 Hrs 01/10/19 01/10/19 01/10/19 05:36 09:55 09:55 WBC 5.2 RBC 4.44 Hgb 12.3 Hct 38.3 MCV 86.3 MCH 27.7 MCHC 32.1 RDW Std Deviation 44.1 H RDW Coeff of Dania 15.2 H Plt Count 280 MPV 9.4 Immature Gran % (Auto) 0.200 Neut % (Auto) 50.5 Lymph % (Auto) 32.1 Imperial % (Auto) 10.2 H Eos % (Auto) 5.8 H Baso % (Auto) 1.2 H Absolute Neuts (auto) 2.6 Absolute Lymphs (auto) 1.67 Nucleated RBC % 0.4 Miscellaneous Test Pending Pending 01/10/19 09:55 WBC RBC Hgb Hct MCV MCH MCHC RDW Std Deviation RDW Coeff of Dania Plt Count MPV Immature Gran % (Auto) Neut % (Auto) Lymph % (Auto) Imperial % (Auto) Eos % (Auto) Baso % (Auto) Absolute Neuts (auto) Absolute Lymphs (auto) Nucleated RBC % Miscellaneous Test Pending Code Visit Addendum: Dr. Helms I personally examined the patient and reviewed the chart. I agree with the above. 33-year-old female presenting with acute on chronic kidney and iron deficiency anemia. She is from [facility] but is up here camping for the summer and plans to return there in the winter. She states that her primary care physician had a discussion with [facility] oncology here in [place] and had recommended a bone marrow biopsy that he has been unable to get insurance approval for as an outpatient. Oncology evaluated the patient and has recommended multiple different labs as well as Venofer infusions and a bone marrow biopsy was done today and she was discharged home. History of PE and DVT and is therefore on Xarelto which was held for the biopsy can be restarted on 01/22/2019. She also had an EGD done by general surgery who noted a fairly normal exam except for mild gastritis, biopsies are pending. No signs of bleeding on the EGD. She will need to follow-up with her primary care physician in [place] for results on the lab testing on her biopsy. Inpatient E&M: 94228 Disch Hosp
[2019-01-10] MEDS: Loperamide 2 MG Capsule 4 MG PO (08:30)
[2019-01-10] MEDS: Pramipexole Di-HCl 0.5 MG Tablet PO ×2 (08:31→11:50)
[2019-01-10] MEDS: 0.9% NaCl Peripheral Flush Adult/Peds IV (08:33)
--- NOTE | 2019-01-10 09:00 | CT_ITS ---
CLINICAL HISTORY: Female, 73 years old. Anemia PROCEDURE: BIOPSY - CT-guided bone marrow aspirate and also call biopsy BIOPSY GUIDANCE - CT guidance FLUOROSCOPY TIME (if supplied): ( ) minutes/seconds RADIATION DOSAGE (If Supplied By Facility): CTDIvol = ( ) mGy, DLP = ( ) mGycm CONSENT: Consent obtained from patient SEDATION: Conscious sedation TECHNIQUE: (All elements of maximal sterile barrier technique followed, including US elements as applicable) Under CT guidance, with sterile technique, a 12-gauge Jamshidi needle is placed along the left posterior ilium. Bone marrow aspirate was then performed initially with heparinized syringe with total of 5 cc acquired, and subsequently with nonheparinized syringe with total of about 8 CC acquired. A core sample of the iliac bone was then removed and determined to be adequate in quality by the ct technician on-site This patient tolerated procedure very well with no complication. CT/Biopsy/Inj or Needle Placement IMPRESSION: Successful CT-guided left iliac bone marrow aspirate and core biopsy performed, with no complication. Electronically Signed: Delfin Milian MD at 13:04 EDT Tel [phone], Service support ,
[2019-01-10] MEDS: Midazolam 2 MG/2 ML Syringe IV ×2 (09:29→09:37)
[2019-01-10] MEDS: fentaNYL 100 MCG/2 ML Ampul IV ×2 (09:30→09:37)
[2019-01-10] MEDS: Citalopram 40 MG TABLET PO (10:51)
[2019-01-10] MEDS: amLODIPine 5 MG Tablet PO (10:51)
[2019-01-10] MEDS: Atenolol 25 MG Tablet PO (10:51)
[2019-01-10] MEDS: Loratadine 10 MG Tablet PO (10:51)
[2019-01-10] MEDS: oxyCODONE 5 MG Tablet 10 MG PO (10:51)
[2019-01-10 10:52] LABS: Absolute Lymphocyte Count 1.67 X10^3/uL (0.83-4.51); Absolute Neutrophil Count 2.6 X10^3/uL (2.0-7.7); Basophil# 0.06 X10^3/uL; Basophil% 1.2 % (0-1); Eosinophils% 5.8 % (0-5); Lymphocyte # 1.67 X10^3/ul (4.0); Lymphocyte % 32.1 % (19-41); Monocyte# 0.53 X10^3/uL; Monocyte% 10.2 % (0-10); NRBC Flagged by Analyzer 0.4 % (0-5); Neutrophil # 2.64 X10^3/uL (2.7-7.7); Neutrophil % 50.5 % (47-70)
[2019-01-10] MEDS: Pantoprazole Sodium 40 MG Tablet PO (10:52)
[2019-01-10] MEDS: Ferrous Sulfate 325 MG Tablet PO (10:52)
--- NOTE | 2019-01-10 11:18 | PHA.DC.COU ---
Pharmacy Services has performed discharge medication counseling for this patient. The patient was counseled on the following discharge medications and changes in medications for homegoing review. 1. MIRAPEX 0.5MT PO 4X/DAYCM The Reason for Use, instructions for use, and potential side effects were reviewed for all new medications. The patient's questions regarding all of their medications were answered. The patient was able to verbally demonstrate an understanding of their discharge medications.
[2019-01-10] MEDS: proCHLORPERazine 5 MG Tablet PO (11:52)
--- NOTE | 2019-01-11 13:12 | CASEMGMT ---
Addendum entered by Nathan Brown 01/11/19 13:39: Pt returned call to TAMI BADILLO . Lengthy call with pt re: outpt care. Pt is from [place], does not have out of network benefits, but was to f/u with Dr. Serrano on dc for biopsy results. Pt plans to call Dr. Serrano for results on Wednesday. Pt states she completed form to have her information faxed to her physicians in [place]. Their plan is to return home after and f/u with physicians. DC Instructions reviewed and no further questions. No care improvement suggestions were given. Pt was very effusive with compliments re: nursing, physician care. Sylvie ABREU RN AC Original Note: TAMI BADILL[facility] DC PHONE CALL DC DATE: 01.10.19 [place] Disposition: [place] Diagnosis on Discharge: Acute on chronic anemia LACE/STRATA: 01/24 Attempted call to listed phone #. no answer, and no message olive picker. Sylvie ABREU RN ACM
== END 2019-01-10 13:00 | disposition home or self-care (01) | DRG 812 ==
LOC: ED 19:10 → PCU 01-05 00:57
PROVIDERS: Anesthesiology; Internal Medicine; Nurse Practitioner Family; Surgery; Admitting Provider Family Medicine; Emergency Provider Emergency Medicine; Referring Provider Family Medicine; Visit Provider Family Medicine
PROC: 0DJ08ZZ Inspection of Upper Intestinal Tract, Via Natural or Artificial Opening Endoscopic (ICD-10-PCS; CPT 43235; principal; 2019-01-05 12:10)
DX: D50.0 Iron deficiency anemia secondary to blood loss (chronic) (principal); G89.4 Chronic pain syndrome; K29.70 Gastritis, unspecified, without bleeding; K21.9 Gastro-esophageal reflux disease without esophagitis; F32.9 Major depressive disorder, single episode, unspecified; K44.9 Diaphragmatic hernia without obstruction or gangrene; F17.210 Nicotine dependence, cigarettes, uncomplicated; I10 Essential (primary) hypertension; M94.0 Chondrocostal junction syndrome [Tietze]; G25.81 Restless legs syndrome; Z86.711 Personal history of pulmonary embolism; Z79.01 Long term (current) use of anticoagulants; Z86.718 Personal history of other venous thrombosis and embolism; Z79.899 Other long term (current) drug therapy; Z87.19 Personal history of other diseases of the digestive system; Z87.11 Personal history of peptic ulcer disease; E78.00 Pure hypercholesterolemia, unspecified; J44.9 Chronic obstructive pulmonary disease, unspecified
CPT/HCPCS: 38221; 43239; 36415; 36430; 71045; 77012; 80048; 80076; 82274; 82728; 83540; 83550; 84484; 85014; 85018; 85025; 85027; 85045; 85379; 85610; 85730; 86850; 86900; 86901; 86920; 86922; 88305; 88311; 88313; 88341; 88342; 93005; 94640; 99156; 99157; 99218; 99284; 99406; J1756; J7030; J7040; P9016; A4216; G0378; J1940; J2405

== ENCOUNTER → 2019-11-20 | Outpatient (CLI) | payer MEDICARE, SELFPAY ==
[2019-01-05 11:24] VITALS: BMI 27.6
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
== END | disposition home or self-care (01) ==
PROVIDERS: Referring Provider Anesthesiology Pain Medicine; Visit Provider Anesthesiology Pain Medicine
DX: M54.2 Cervicalgia (principal); M54.6 Pain in thoracic spine; M54.5 Low back pain
CPT/HCPCS: 72040; 72072; 72100